=== PATIENT | male | born 1955 | race Caucasian/White ===

== ENCOUNTER 2018-04-14 15:58 | Inpatient (IN) | payer BC ==
[2018-04-14] MEDS ORDERED: SODIUM CHLORIDE 0.9% 1,000 ML IV STA (16:06)
--- NOTE | 2018-04-14 16:14 | ED ---
Arrhythmia/Palpitations HPI - General Chief Complaint: Arrhythmia/Palpitations Stated Complaint: SOB AFIB Time Seen by Provider: 04/14/18 16:05 Source: patient, RN notes reviewed, old records reviewed Mode of arrival: ambulatory Limitations: no limitations - History of Present Illness MD Complaint: rapid heart beat, "heart racing", irregular heart beat, atrial fibrillation -: hour(s) Context: occurred during rest Arrhythmia History: atrial fibrillation Associated Symptoms: shortness of breath - Related Data Home Medications Medication Instructions Recorded Confirmed Omeprazole [PriLOSEC] 20 mg PO DAILY 01/10/14 04/14/18 Simvastatin [Zocor] 10 mg PO HS 01/10/14 04/14/18 Albuterol Sulfate [Proair Hfa] 2 puff INHALATION RT-Q6H PRN 10/11/15 04/14/18 Apixaban [Eliquis] 5 mg PO BID 10/11/15 04/14/18 Fluticasone/Salmeterol [Advair 1 puff INHALATION RT-BID 10/11/15 04/14/18 500-50 Diskus] Ipratropium/Albuterol Sulfate 1 puff INHALATION RT-QID 10/11/15 04/14/18 [Combivent Respimat Inhaler] Lisinopril [Zestril] 2.5 mg PO DAILY 10/11/15 04/14/18 Propafenone [Rythmol] 150 mg PO DAILY PRN 10/11/15 04/14/18 metFORMIN HCL 1,000 mg PO BID 10/13/15 04/14/18 Carvedilol [Coreg] 25 mg PO BID 04/14/18 04/14/18 Cholecalciferol [Vitamin D3] 5,000 unit PO DAILY 04/14/18 04/14/18 Indomethacin [Indocin] 25 mg PO TID 04/14/18 04/14/18 Ipratropium-Albuterol Nebulize 3 ml INHALATION RT-QID 04/14/18 04/14/18 [Duoneb 0.5 mg-3 mg/3 ml Soln] glipiZIDE [Glucotrol] 5 mg PO AC-BRKFST 04/14/18 04/14/18 traMADol HCL [Ultram] 50 mg PO BID PRN 04/14/18 04/14/18 Allergies Allergy/AdvReac Type Severity Reaction Status Date / Time Penicillins Allergy Severe Anaphylaxis Verified 04/14/18 16:42 aspirin AdvReac Nausea Verified 04/14/18 16:42 metoprolol succinate AdvReac increased Verified 04/14/18 16:42 [From Toprol XL] BP, palpitations EKG adhesive patch Allergy Rash/Hives Uncoded 10/11/15 11:15 Review of Systems ROS Statement: Those systems with pertinent positive or pertinent negative responses have been documented in the HPI. ROS Other: All systems not noted in ROS Statement are negative. Past Medical History Past Medical History: Atrial Fibrillation, COPD, Diabetes Mellitus, GERD/Reflux , Hyperlipidemia, Hypertension, Sleep Apnea/CPAP/BIPAP Additional Past Medical History / Comment(s): hx migraines, History of Any Multi-Drug Resistant Organisms: None Reported Past Surgical History: Heart Catheterization, Orthopedic Surgery, Tonsillectomy Additional Past Surgical History / Comment(s): left knee athroscopy, nasal surgery, cyst removed from left hand, hemorrhoidectomy, WYATT, cardioversion x 2, Past Anesthesia/Blood Transfusion Reactions: Motion Sickness Past Psychological History: No Psychological Hx Reported Smoking Status: Former smoker - Past Family History Father Family Medical History: Cancer General Exam Limitations: no limitations General appearance: alert, anxious, in distress Head exam: Present: atraumatic, normocephalic, normal inspection Eye exam: Present: normal appearance, PERRL, EOMI. Absent: scleral icterus, conjunctival injection, periorbital swelling ENT exam: Present: normal exam, mucous membranes moist Neck exam: Present: normal inspection. Absent: tenderness, meningismus, lymphadenopathy Respiratory exam: Present: normal lung sounds bilaterally, wheezes. Absent: respiratory distress, rales, rhonchi, stridor Cardiovascular Exam: Present: tachycardia, irregular rhythm, normal heart sounds. Absent: systolic murmur, diastolic murmur, rubs, gallop, clicks GI/Abdominal exam: Present: soft, normal bowel sounds. Absent: distended, tenderness, guarding, rebound, rigid Extremities exam: Present: normal inspection, full ROM, normal capillary refill. Absent: tenderness, pedal edema, joint swelling, calf tenderness Back exam: Present: normal inspection Neurological exam: Present: alert, oriented X3, CN II-XII intact Psychiatric exam: Present: normal affect, normal mood Skin exam: Present: warm, dry, intact, normal color. Absent: rash Course Vital Signs 04/14/18 04/14/18 04/14/18 16:00 16:24 16:28 Temperature 98.2 F Pulse Rate 99 176 H Pulse Rate [ 188 H Grain Scooper ] Respiratory 24 22 Rate Blood Pressure 156/102 117/83 O2 Sat by Pulse 96 96 Oximetry 04/14/18 17:00 Temperature Pulse Rate 172 H Pulse Rate [ Grain Scooper ] Respiratory 22 Rate Blood Pressure O2 Sat by Pulse 96 Oximetry - Reevaluation(s) Reevaluation #1: 04/14/18 18:32 Medical record is Reevaluation #2: 04/14/18 18:32 [id number] improvement heart rate. Patient still tachycardic EKG Findings - EKG Comments: EKG Findings:: EKG shows A. fib with RVR rate 191, QRS 76, QTc 428 Medical Decision Making - Medical Decision Making 62 male to be admitted with A. fib with RVR. Patient also has underlying COPD. Patient will be admitted for cardiac observation, further rate control - Lab Data Result diagrams: 04/14/18 16:21 04/14/18 16:21 Lab Results 04/14/18 04/14/18 04/14/18 Range/Units 16:21 16:21 16:21 WBC 12.0 H (3.8-10.6) k/uL RBC 4.74 (4.30-5.90) m/uL Hgb 14.4 (13.0-17.5) gm/dL Hct 44.7 (39.0-53.0) % MCV 94.2 (80.0-100.0) fL MCH 30.4 (25.0-35.0) pg MCHC 32.3 (31.0-37.0) g/dL RDW 15.6 H (11.5-15.5) % Plt Count 297 (150-450) k/uL Neutrophils % 82 % Lymphocytes % 12 % Monocytes % 4 % Eosinophils % 1 % Basophils % 1 % Neutrophils # 9.9 H (1.3-7.7) k/uL Lymphocytes # 1.4 (1.0-4.8) k/uL Monocytes # 0.5 (0-1.0) k/uL Eosinophils # 0.1 (0-0.7) k/uL Basophils # 0.1 (0-0.2) k/uL Sodium 141 (137-145) mmol/L Potassium 4.7 (3.5-5.1) mmol/L Chloride 103 (98-107) mmol/L Carbon Dioxide 29 (22-30) mmol/L Anion Gap 9 mmol/L BUN 22 H (9-20) mg/dL Creatinine 0.78 (0.66-1.25) mg/dL Est GFR (CKD-EPI)AfAm >90 (>60 ml/min/1.73 sqM) Est GFR (CKD-EPI)NonAf >90 (>60 ml/min/1.73 sqM) Glucose 155 H (74-99) mg/dL Calcium 9.4 (8.4-10.2) mg/dL Magnesium 1.8 (1.6-2.3) mg/dL Total Bilirubin 0.5 (0.2-1.3) mg/dL AST 18 (17-59) U/L ALT 58 (21-72) U/L Alkaline Phosphatase 66 (38-126) U/L Troponin I <0.012 (0.000-0.034) ng/mL Total Protein 6.2 L (6.3-8.2) g/dL Albumin 3.8 (3.5-5.0) g/dL TSH 2.150 (0.465-4.680) mIU/L Critical Care Time Critical Care Time: Yes Total Critical Care Time: 31 Disposition Clinical Impression: Atrial fibrillation with RVR, COPD (chronic obstructive pulmonary disease) Disposition: ADMITTED IP TO THIS HOSP Condition: Fair Is patient prescribed a controlled substance at d/c from ED?: No Referrals: None,Stated [REFERRING] - 1-2 days
[2018-04-14] MEDS ORDERED: DILTIAZEM DRIP BOLUS FROM BAG 1 MG SOLN IV ONE ×3 (16:19→23:28)
[2018-04-14] MEDS ORDERED: DILTIAZEM 125 MG in SODIUM CHLORIDE 0.9% 100 ML IV SCH (16:30)
[2018-04-14 16:52] LABS: ALT 58 U/L (21-72); AST 18 U/L (17-59); Albumin 3.8 g/dL (3.5-5.0); Alkaline Phosphatase 66 U/L (38-126); Anion Gap 9 mmol/L; Blood Urea Nitrogen 22 mg/dL (9-20); Calcium 9.4 mg/dL (8.4-10.2); Carbon Dioxide 29 mmol/L (22-30); Chloride 103 mmol/L (98-107); Glucose 155 mg/dL (74-99); Magnesium 1.8 mg/dL (1.6-2.3); Potassium 4.7 mmol/L (3.5-5.1); Sodium 141 mmol/L (137-145); Total Bilirubin 0.5 mg/dL (0.2-1.3); Total Protein 6.2 g/dL (6.3-8.2)
[2018-04-14 17:02] LABS: Basophils # (A) 0.1 k/uL (0-0.2); Basophils % (A) 1 %; Eosinophils # (A) 0.1 k/uL (0-0.7); Eosinophils % (A) 1 %; HCT 44.7 % (39.0-53.0); HGB 14.4 gm/dL (13.0-17.5); Lymphocytes # (A) 1.4 k/uL (1.0-4.8); Lymphocytes % (A) 12 %; MCH 30.4 pg (25.0-35.0); MCHC 32.3 g/dL (31.0-37.0); MCV 94.2 fL (80.0-100.0); Mean Platelet Volume 6.2; Monocytes # (A) 0.5 k/uL (0-1.0); Monocytes % (A) 4 %; Neutrophils # (A) 9.9 k/uL (1.3-7.7); Neutrophils % (A) 82 %; Platelet Count 297 k/uL (150-450); RBC 4.74 m/uL (4.30-5.90); RDW 15.6 % (11.5-15.5)
[2018-04-14] MEDS ORDERED: NITROGLYCERIN SL TABS 0.4 MG TAB SUBLINGUAL PRN (18:33)
[2018-04-14 20:47] LABS: Glucose,Whole Blood 109 mg/dL (75-99)
[2018-04-14] MEDS ORDERED: traMADol 50 MG TAB PO PRN (23:11)
[2018-04-14] MEDS ORDERED: PROPAFENONE 150 MG TAB PO PRN (23:11)
[2018-04-14] MEDS: APIXABAN 5 MG TAB PO SCH (23:39)
[2018-04-14] MEDS: ATORVASTATIN 10 MG TAB PO SCH (23:39)
[2018-04-14] MEDS: CARVEDILOL 12.5 MG TAB PO SCH (23:39)
[2018-04-14] MEDS: INDOMETHACIN 25 MG CAP PO SCH (23:41)
[2018-04-14] MEDS: SODIUM CHLORIDE 0.9% 1,000 ML IV SCH (23:44)
[2018-04-15] MEDS ORDERED: SYMBICORT 160-4.5 MCG INHALER INHALATION SCH ×2 (00:06→08:00)
[2018-04-15] MEDS: metFORMIN 500 MG TAB PO SCH ×3 (00:41→20:11)
[2018-04-15] MEDS: ALBUTEROL NEBULIZED 2.5 MG/3 ML INHALATION PRN ×2 (00:52→05:31)
[2018-04-15 05:45] LABS: Glucose,Whole Blood 165 mg/dL (75-99)
[2018-04-15] MEDS: SODIUM CHLORIDE 0.9% 1,000 ML IV SCH (05:50)
[2018-04-15] MEDS: PANTOPRAZOLE 40 MG TABLET PO SCH (05:53)
[2018-04-15 06:06] LABS: Cholesterol 112 mg/dL (<200); HDL Cholesterol 48 mg/dL (40-60); LDL Cholesterol,Calculated 28 mg/dL (0-99); Triglycerides 182 mg/dL (<150)
[2018-04-15] MEDS: IPRATROPIUM-ALBUTEROL 3 ML NEB INHALATION SCH ×4 (07:41→20:58)
[2018-04-15] MEDS: SYMBICORT 160-4.5 MCG INHALER INHALATION SCH ×2 (07:46→20:58)
[2018-04-15] MEDS ORDERED: DEXTROSE 5% IN WATER 100 ML with AMIODARONE 150 MG IV ONE ×2 (08:15→18:11)
--- NOTE | 2018-04-15 08:17 | P.CRDCN ---
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 Devi for his lung needs. According to the patient, he had been to see Dr. Hastings on a couple of occasions recently because of difficulty in breathing, it was felt that he may have a COPD exacerbation and he was treated with steroids. In spite of being on the steroids patient continued to be short of breath, and can feel his heart racing fast. He went back to see Dr. Hastings in the office and was found to be in A. fib with RVR. The patient was then directed to come to the emergency room. There was no chest x-ray performed on arrival here. EKG performed on arrival here showed atrial fibrillation with a rapid ventricular response, heart rate 190. Blood pressure 156/102 on arrival, oxygen saturation 96% on room air. White blood cell count 12.0, hemoglobin 14.4 , platelet count 297. Sodium 141, potassium 4.7, BUN 22 and creatinine 0.7. Magnesium 1.8. Troponins are negative 3. TSH level II.1. At the time of my examination, patient is quite tired, and quite short of breath. He does feel his heart racing fast. Apparently his heart rate has been up in the 150-160 range through most of the night. He is on a Cardizem drip at 10 mg per hour currently. Patient's home medications include Ultram, metformin, Glucotrol, Zocor, Rythmol when necessary, Prilosec, Zestril, inhalers, Indocin, Advair, vitamin D, Coreg, Eliquis, and pro-air. According to the patient, he did not realize that he was back in atrial fibrillation, he did not take Rythmol at home. He thinks the symptoms have been going on for 3 or 4 weeks. Past Medical History Past Medical History: Atrial Fibrillation, COPD, Diabetes Mellitus, GERD/Reflux , Hyperlipidemia, Hypertension, Sleep Apnea/CPAP/BIPAP Additional Past Medical History / Comment(s): hx migraines, History of Any Multi-Drug Resistant Organisms: None Reported Past Surgical History: Heart Catheterization, Orthopedic Surgery, Tonsillectomy Additional Past Surgical History / Comment(s): left knee athroscopy, nasal surgery, cyst removed from left hand, hemorrhoidectomy, WYATT, cardioversion x 2, Past Anesthesia/Blood Transfusion Reactions: Motion Sickness Past Psychological History: No Psychological Hx Reported Smoking Status: Former smoker Past Alcohol Use History: None Reported Additional Past Alcohol Use History / Comment(s): quit smoking 25 yrs ago, smoked for 25 yrs, 1 PPD Past Drug Use History: Marijuana Additional Drug Use History / Comment(s): none in past 1 1/2 yrs. - Past Family History Father Family Medical History: Cancer Medications and Allergies Home Medications Medication Instructions Recorded Confirmed Type Omeprazole [PriLOSEC] 20 mg PO DAILY 01/10/14 04/14/18 History Simvastatin [Zocor] 10 mg PO HS 01/10/14 04/14/18 History Albuterol Sulfate [Proair Hfa] 2 puff INHALATION RT-Q6H PRN 10/11/15 04/14/18 History Apixaban [Eliquis] 5 mg PO BID 10/11/15 04/14/18 History Fluticasone/Salmeterol [Advair 1 puff INHALATION RT-BID 10/11/15 04/14/18 History 500-50 Diskus] Ipratropium/Albuterol Sulfate 1 puff INHALATION RT-QID 10/11/15 04/14/18 History [Combivent Respimat Inhaler] Lisinopril [Zestril] 2.5 mg PO DAILY 10/11/15 04/14/18 History Propafenone [Rythmol] 150 mg PO DAILY PRN 10/11/15 04/14/18 History metFORMIN HCL 1,000 mg PO BID 10/13/15 04/14/18 History Carvedilol [Coreg] 25 mg PO BID 04/14/18 04/14/18 History Cholecalciferol [Vitamin D3] 5,000 unit PO DAILY 04/14/18 04/14/18 History Indomethacin [Indocin] 25 mg PO TID 04/14/18 04/14/18 History Ipratropium-Albuterol Nebulize 3 ml INHALATION RT-QID 04/14/18 04/14/18 History [Duoneb 0.5 mg-3 mg/3 ml Soln] glipiZIDE [Glucotrol] 5 mg PO AC-BRKFST 04/14/18 04/14/18 History traMADol HCL [Ultram] 50 mg PO BID PRN 04/14/18 04/14/18 History Allergies Allergy/AdvReac Type Severity Reaction Status Date / Time Penicillins Allergy Severe Anaphylaxis Verified 04/14/18 16:42 aspirin AdvReac Nausea Verified 04/14/18 16:42 metoprolol succinate AdvReac increased Verified 04/14/18 16:42 [From Toprol XL] BP, palpitations EKG adhesive patch Allergy Rash/Hives Uncoded 10/11/15 11:15 Physical Exam Vitals: Vital Signs Temp Pulse Pulse Resp BP BP BP 04/15/18 07:58 88 04/15/18 07:41 92 04/15/18 05:41 114 H 16 04/15/18 05:31 128 H 18 04/15/18 04:00 144 H 18 114/84 04/15/18 01:02 108 H 04/15/18 00:53 98 04/15/18 00:00 150 H 24 126/81 04/14/18 23:50 158 H 144/87 04/14/18 23:35 150 H 18 126/81 04/14/18 22:57 96 F L 155 H 18 123/71 04/14/18 21:50 98.5 F 141 H 20 04/14/18 21:00 151 H 20 118/90 04/14/18 20:00 98.0 F 148 H 20 116/77 04/14/18 17:00 172 H 22 04/14/18 16:28 176 H 22 117/83 04/14/18 16:24 188 H 04/14/18 16:00 98.2 F 99 24 156/102 Pulse Ox 04/15/18 07:58 04/15/18 07:41 04/15/18 05:41 04/15/18 05:31 04/15/18 04:00 95 04/15/18 01:02 04/15/18 00:53 04/15/18 00:00 95 04/14/18 23:50 04/14/18 23:35 95 04/14/18 22:57 96 02/26/19 21:50 97 04/14/18 21:00 98 04/14/18 20:00 96 04/14/18 17:00 96 04/14/18 16:28 96 04/14/18 16:24 04/14/18 16:00 96 Intake and Output 04/14/18 04/15/18 04/15/18 22:59 06:59 14:59 Intake Total 27.167 Balance 27.167 Intake: Intake, IV Titration 27.167 Amount Diltiazem 125 mg In 27.167 Sodium Chloride 0.9% 100 ml @ 5 MG/HR 5 mls/hr IV .Q24H [facility] Rx#:[id number] Other: Voiding Method Toilet # Voids 1 Weight 153.314 kg 154 kg PHYSICAL EXAMINATION: GENERAL: 62-year-old gentleman in no acute distress at time of my examination HEENT: Head is atraumatic, normocephalic. Pupils equal, round. Sclera anicteric. Conjunctiva are clear. Mucous membranes of the mouth are moist. Neck is supple. There is no elevated jugular venous pressure. HEART EXAMINATION: Heart S1 and S2 irregularly irregular CHEST EXAMINATION: Lungs are clear with diminished air entry to bilateral bases. ABDOMEN: Soft, obese, nontender. Bowel sounds are heard. No organomegaly noted. EXTREMITIES: 2+ peripheral pulses with trace evidence of peripheral edema and no calf tenderness noted. NEUROLOGIC patient is awake, alert and oriented 3 . . Results 04/14/18 16:21 04/14/18 16:21 Cardiac Enzymes 04/14/18 04/14/18 04/14/18 Range/Units 16:21 16:21 22:39 AST 18 (17-59) U/L Troponin I <0.012 <0.012 (0.000-0.034) ng/mL 04/15/18 Range/Units 05:27 AST (17-59) U/L Troponin I <0.012 (0.000-0.034) ng/mL Lipids 04/15/18 Range/Units 05:27 Triglycerides 182 H (<150) mg/dL Cholesterol 112 (<200) mg/dL HDL Cholesterol 48 (40-60) mg/dL CBC 04/14/18 Range/Units 16:21 WBC 12.0 H (3.8-10.6) k/uL RBC 4.74 (4.30-5.90) m/uL Hgb 14.4 (13.0-17.5) gm/dL Hct 44.7 (39.0-53.0) % Plt Count 297 (150-450) k/uL Comprehensive Metabolic Panel 04/14/18 Range/Units 16:21 Sodium 141 (137-145) mmol/L Potassium 4.7 (3.5-5.1) mmol/L Chloride 103 (98-107) mmol/L Carbon Dioxide 29 (22-30) mmol/L BUN 22 H (9-20) mg/dL Creatinine 0.78 (0.66-1.25) mg/dL Glucose 155 H (74-99) mg/dL Calcium 9.4 (8.4-10.2) mg/dL AST 18 (17-59) U/L ALT 58 (21-72) U/L Alkaline Phosphatase 66 (38-126) U/L Total Protein 6.2 L (6.3-8.2) g/dL Albumin 3.8 (3.5-5.0) g/dL Current Medications Generic Name Dose Route Start Last Admin Trade Name Freq PRN Reason Stop Dose Admin Albuterol Sulfate 2.5 mg 04/14/18 23:11 04/15/18 05:31 Ventolin Nebulized INHALATION 2.5 mg RT-Q6H PRN Administration Shortness Of Breath Albuterol/Ipratropium 3 ml 04/15/18 08:00 04/15/18 07:41 Duoneb 0.5 Mg-3 Mg/3 Ml Soln INHALATION 3 ml RT-QID [facility] Administration Apixaban 5 mg 04/14/18 23:15 04/14/18 23:39 Eliquis PO 5 mg BID [facility] Administration Atorvastatin Calcium 10 mg 04/14/18 23:15 04/14/18 23:39 Lipitor PO 10 mg HS [facility] Administration Budesonide/Formoterol Fumarate 2 puff 04/15/18 08:00 04/15/18 07:46 Symbicort 160-4.5 Mcg Inhaler INHALATION 2 puff RT-BID [facility] Administration Carvedilol 25 mg 04/14/18 23:15 04/14/18 23:39 Coreg PO 25 mg BID [facility] Administration Glipizide 5 mg 04/15/18 07:30 Glucotrol PO AC-BRKFST [facility] Sodium Chloride 1,000 mls @ 100 mls/hr 04/14/18 18:45 04/15/18 05:50 Saline 0.9% IV 100 mls/hr .Q10H [facility] Administration Amiodarone HCl 150 mg/ 103 mls @ 618 mls/hr 04/15/18 08:15 Dextrose/Water IV 04/15/18 08:24 .Q10M ONE Amiodarone HCl 360 mg/ 207.2 mls @ 34.53 mls/hr 04/15/18 08:30 Dextrose/Water IV 04/15/18 14:30 .Q6H1M ONE Protocol 1 MG/MIN Amiodarone HCl 300 mg/ 256 mls @ 25.6 mls/hr 04/15/18 14:30 Dextrose/Water IV 04/16/18 08:03 .Q10H [facility] Protocol 0.5 MG/MIN Indomethacin 25 mg 04/14/18 23:15 04/14/18 23:41 Indocin PO 25 mg TID [facility] Administration Lisinopril 2.5 mg 04/15/18 09:00 Zestril PO DAILY [facility] Metformin HCl 1,000 mg 04/14/18 23:40 04/15/18 00:41 Glucophage PO 1,000 mg BID [facility] Administration Nitroglycerin 0.4 mg 04/14/18 18:33 Nitrostat SUBLINGUAL Q5M PRN Chest Pain Pantoprazole Sodium 40 mg 04/15/18 07:30 04/15/18 05:53 Protonix PO 40 mg DAILY@0730 [facility] Administration Propafenone HCl 150 mg 04/14/18 23:11 Rythmol PO DAILY PRN atrial fib Tramadol HCl 50 mg 04/14/18 23:11 Ultram PO BID PRN Pain Intake and Output 04/14/18 04/15/18 04/15/18 22:59 06:59 14:59 Intake Total 27.167 Balance 27.167 Intake: Intake, IV Titration 27.167 Amount Diltiazem 125 mg In 27.167 Sodium Chloride 0.9% 100 ml @ 5 MG/HR 5 mls/hr IV .Q24H [facility] Rx#:[id number] Other: Voiding Method Toilet # Voids 1 Weight 153.314 kg 154 kg 04/14/18 16:21 04/14/18 16:21 EKG Interpretations (text) EKG shows atrial fibrillation with a rapid ventricular response Assessment and Plan Plan: Assessment and plan #1 atrial fibrillation with rapid ventricular response #2 history of paroxysmal atrial fibrillation on Eliquis for anticoagulation #3 COPD with possible exacerbation #4 hypertension #5 hyperlipidemia #6 diabetes #7 prior smoking history #8 sleep apnea Plan We will obtain a stat chest x-ray as well as BNP level. Start the patient on IV amiodarone. We will also obtain an echocardiogram with Doppler study. Continue the patient on Eliquis 5 mg one tablet by mouth twice a day. Further recommendations to follow. DNP note has been reviewed, I agree with a documented findings and plan of care. Patient was seen and examined.
[2018-04-15] MEDS: glipiZIDE 5 MG TAB PO SCH (08:19)
[2018-04-15] MEDS: LISINOPRIL 2.5 MG TAB PO SCH (08:19)
[2018-04-15] MEDS: CARVEDILOL 12.5 MG TAB PO SCH ×2 (08:19→20:11)
[2018-04-15] MEDS: APIXABAN 5 MG TAB PO SCH ×2 (08:19→20:11)
[2018-04-15] MEDS: INDOMETHACIN 25 MG CAP PO SCH ×3 (08:19→23:14)
[2018-04-15] MEDS ORDERED: AMIODARONE 360 MG in DEXTROSE 5% IN WATER 200 ML IV ONE ×4 (08:30→18:16)
[2018-04-15] MEDS ORDERED: metFORMIN 500 MG TAB PO SCH (09:00)
--- NOTE | 2018-04-15 10:21 | XR ---
EXAMINATION TYPE: XR chest 2V DATE OF EXAM: 04/15/2018 COMPARISON: 02/24/2018 INDICATION: Short of breath TECHNIQUE: Frontal and lateral views of the chest are obtained. FINDINGS: The heart size is normal. The pulmonary vasculature is normal. The lungs are clear. IMPRESSION: 1. No acute pulmonary process.
[2018-04-15] MEDS ORDERED: PROPAFENONE 150 MG TAB PO STA (10:48)
[2018-04-15 11:30] LABS: Glucose,Whole Blood 190 mg/dL (75-99)
[2018-04-15] MEDS ORDERED: AMIODARONE 300 MG in DEXTROSE 5% IN WATER 250 ML IV SCH ×2 (14:30)
[2018-04-15] MEDS ORDERED: predniSONE 20 MG TAB PO STA (15:15)
--- NOTE | 2018-04-15 15:39 | HP ---
(HISTORY AND PHYSICAL DATE OF ADMISSION: 04/14/2018. DATE OF SERVICE: 04/15/2018 PRESENTING COMPLAINT: Heart racing. HISTORY OF PRESENTING COMPLAINT: A very pleasant 62-year-old patient who follows with Dr. Lelia Rivas. Chronic stable medical condition includes COPD, diabetes, GERD, hypertension, hyperlipidemia. Patient had been getting short of breath with little exertion, had gone to see Dr. Hastings in the office. Today he was discovered to have a heart rate well above the 150s. Admitted for the same. Initially put on IV Cardizem. Patient does take chronically Eliquis. Earlier this morning, patient was started on IV amiodarone drip. at the bedside. No cough. No wheezing. No fever. No chills. No chest pain, just tired and run down. REVIEW OF SYSTEMS: CONSTITUTIONAL: Tired. HEENT None. RESPIRATORY: As above. CARDIOVASCULAR: As above. GASTROINTESTINAL: None. GENITOURINARY: None. MUSCULOSKELETAL: None. DERMATOLOGICAL: None. HEMATOLOGICAL: None. LYMPHATIC: None. PSYCHIATRY: None. NEUROLOGICAL: None. PAST MEDICAL HISTORY: Paroxysmal atrial fibrillation, COPD, diabetes, GERD, hypertension, hyperlipidemia, obstructive sleep apnea. PAST SURGICAL HISTORY: Cardiac catheterization, tonsillectomy, left knee arthroscopy, nasal surgery, cyst removed from left hand, hemorrhoidectomy, WYATT, cardioversion x2. SOCIAL HISTORY: Smoked a pack a day for 25 years. stopped 25 years ago. 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 . No alcohol. FAMILY HISTORY: Cancer. HOME MEDICATIONS: 1. Ultram 50 mg p.o. b.i.d. p.r.n. 2. Metformin 1000 mg p.o. b.i.d. 3. Glucotrol 5 mg p.o. before breakfast. 4. Zocor 10 mg q.h.s. 5. Rythmol 150 mg daily p.r.n. 6. Prilosec 20 mg p.o. daily. 7. Zestril 22.5 p.o. daily. 8. Combivent 1 puff q.i.d. 9. DuoNeb q.i.d. 10.Indocin 25 mg t.i.d. 11.Advair 1 puff b.i.d. 12.Vitamin D3 five thousand units p.o. daily. 13.Coreg 25 mg b.i.d. 14.Eliquis 5 mg b.i.d. 15.ProAir 2 puffs q.6 p.r.n. ALLERGIES: PENICILLIN, ASPIRIN, TOPROL-XL. PHYSICAL EXAMINATION: Vital signs on presentation temperature 98.2, pulse 118, respiration 22, blood pressure 117/83, pulse ox 96% on room air. GENERAL APPEARANCE: Well built, BMI 42.6, sitting up, awake. EYES: Pupils equal, conjunctivae normal. HEENT: External appearance of nose and ears normal, oral cavity normal. NECK: JVD not raised. Mass not palpable. RESPIRATORY: Effort normal, slightly decreased breath sounds. CARDIOVASCULAR: Heart is irregular. No edema. ABDOMEN: Soft, nontender. Liver and spleen not palpable. LYMPHATIC: No lymph node palpable in neck or axillae. PSYCHIATRY: Alert and oriented x3, mood and affect normal. NEUROLOGICAL: Pupils equal. Cranial nerves grossly intact. Power and sensation grossly intact. INVESTIGATIONS: Lab work and radiology reviewed in the clinical context. White count 12, hemoglobin 14.4, potassium 4.7, BUN 22, creatinine 0.78. Troponin less than 0.012 x3. TSH is 2.150. EKG tracing personally reviewed by me shows atrial flutter fibrillation with a rapid ventricular rate up to 190s. Chest x-ray film personally reviewed by me shows some cardiomegaly. Lung dominguez are clear. ASSESSMENT: 1. Atrial flutter-fibrillation with a rapid ventricular rate, persistent symptomatic. 2. Chronic obstructive pulmonary disease in an ex-smoker. 3. Diabetes mellitus type 2 on oral hypoglycemic. 4. Gastroesophageal reflux disease. 5. Hyperlipidemia. 6. Essential hypertension. 7. Obstructive sleep apnea, uses CPAP machine. 8. Morbid obesity, body mass index 43.6. PLAN: Patient's home medications are resumed. Initially was put on a Cardizem drip, is now discontinued. Patient is switched to an IV amiodarone drip. A 2D echocardiogram was ordered. Care was discussed with the patient and . The patient was seen by Cardiology, Dr. Yarelis Martins. MMODL / NEELAMN: [id number] /
--- NOTE | 2018-04-15 16:48 | ECHOF ---
Referral Reason:assess lvf MEASUREMENTS -------- HEIGHT: 182.9 cm WEIGHT: 108.4 kg BP: IVSd: 1.3 cm (0.6 - 1.1) LVIDd: 5.3 cm (3.9 - 5.3) LVPWd: 1.4 cm (0.6 - 1.1) IVSs: 1.5 cm LVIDs: 3.4 cm LVPWs: 2.0 cm Ao Diam: 3.7 cm (2.0 - 3.7) LA Diam: 4.5 cm (2.7 - 3.8) MV E Ari: 0.67 m/s MV DecT: 165 ms MV A Ari: 0.05 m/s MV E/A Ratio: 13.38 FINDINGS -------- Undetermined rhythm. Morbid Obesity There is mild concentric left ventricular hypertrophy. Overall left ventricular systolic function i s low-normal with, an EF between 50 - 55 %. The right ventricle is normal in size. The left atrial size is normal. The right atrial size is normal. 5.0mg OF Lumason UTLIZED: 2 OR MORE WALL SEGMENTS NOT VISUALIZED. The aortic valve was not well visualized. The mitral valve was not well visualized. The tricuspid valve was not well visualized. Unable to estimate RVSP due to inadequate TR jet spect ral doppler profile. The pulmonic valve was not well visualized. The aortic root size is normal. There is no pericardial effusion. CONCLUSIONS -------- 1. Morbid Obesity 2. There is mild concentric left ventricular hypertrophy. 3. Overall left ventricular systolic function is low-normal with, an EF between 50 - 55 %. 4. The right ventricle is normal in size. 5. The left atrial size is normal. 6. The right atrial size is normal. 7. 5.0mg OF Lumason UTLIZED: 2 OR MORE WALL SEGMENTS NOT VISUALIZED. 8. The aortic valve was not well visualized. 9. The mitral valve was not well visualized. 10. The tricuspid valve was not well visualized. 11. Unable to estimate RVSP due to inadequate TR jet spectral doppler profile. 12. The pulmonic valve was not well visualized. 13. The aortic root size is normal. 14. There is no pericardial effusion. PRINCIPAL BIOSTATISTICIAN: Adalgisa Ortega RDCS
[2018-04-15 16:50] LABS: Glucose,Whole Blood 117 mg/dL (75-99)
[2018-04-15] MEDS: ATORVASTATIN 10 MG TAB PO SCH (20:11)
[2018-04-15 20:57] LABS: Glucose,Whole Blood 208 mg/dL (75-99)
[2018-04-16] MEDS: AMIODARONE 300 MG in DEXTROSE 5% IN WATER 250 ML IV SCH ×6 (01:00→23:13)
[2018-04-16 06:31] LABS: Glucose,Whole Blood 136 mg/dL (75-99)
[2018-04-16] MEDS: PANTOPRAZOLE 40 MG TABLET PO SCH (06:31)
[2018-04-16] MEDS: glipiZIDE 5 MG TAB PO SCH (06:31)
[2018-04-16] MEDS: IPRATROPIUM-ALBUTEROL 3 ML NEB INHALATION SCH ×4 (07:33→20:54)
[2018-04-16] MEDS: SYMBICORT 160-4.5 MCG INHALER INHALATION SCH ×2 (07:33→18:59)
[2018-04-16 07:51] LABS: Basophils # (A) 0.1 k/uL (0-0.2); Basophils % (A) 1 %; Eosinophils # (A) 0.1 k/uL (0-0.7); Eosinophils % (A) 1 %; HCT 45.1 % (39.0-53.0); HGB 14.3 gm/dL (13.0-17.5); Hypochromasia Slight; Lymphocytes # (A) 2.4 k/uL (1.0-4.8); Lymphocytes % (A) 20 %; MCHC 31.6 g/dL (31.0-37.0); MCV 94.8 fL (80.0-100.0); Mean Platelet Volume 6.9; Monocytes # (A) 0.6 k/uL (0-1.0); Monocytes % (A) 5 %; Neutrophils # (A) 9.2 k/uL (1.3-7.7); Neutrophils % (A) 74 %; Platelet Count 250 k/uL (150-450); RBC 4.76 m/uL (4.30-5.90); RDW 15.2 % (11.5-15.5); WBC 12.5 k/uL (3.8-10.6)
[2018-04-16 08:10] LABS: Potassium 4.3 mmol/L (3.5-5.1)
[2018-04-16 08:11] LABS: Anion Gap 13 mmol/L; Blood Urea Nitrogen 16 mg/dL (9-20); Calcium 9.4 mg/dL (8.4-10.2); Carbon Dioxide 26 mmol/L (22-30); Chloride 102 mmol/L (98-107); Glucose 118 mg/dL (74-99); Sodium 141 mmol/L (137-145)
[2018-04-16] MEDS: INDOMETHACIN 25 MG CAP PO SCH (08:51)
[2018-04-16] MEDS: CARVEDILOL 12.5 MG TAB PO SCH ×2 (08:51→20:22)
[2018-04-16] MEDS: LISINOPRIL 2.5 MG TAB PO SCH (08:51)
[2018-04-16] MEDS: predniSONE 10 MG TAB PO SCH (08:51)
[2018-04-16] MEDS: APIXABAN 5 MG TAB PO SCH ×2 (08:51→20:23)
[2018-04-16] MEDS: metFORMIN 500 MG TAB PO SCH ×2 (08:52→20:22)
[2018-04-16 11:50] LABS: Glucose,Whole Blood 111 mg/dL (75-99)
--- NOTE | 2018-04-16 14:09 | CDI ---
Documentation Clarification Form Date: 04/16/2018 1:56:34 PM From: Areli Almeida CCS, CCDS Admit Date: 04/14/2018 6:33:00 PM Patient Name: Josemanuel Mccartney Visit Number: [id number] Discharge Date: ATTENTION: The Clinical Documentation Specialists (CDI) and [facility] Coding Staff appreciate your assistance in clarifying documentation. Please respond to the clarification below the line at the bottom and electronically sign. The CDI & [facility] Coding staff will review the response and follow-up if needed. Please note: Queries are made part of the Legal Health Record. If you have any questions, please contact the author of this message via ITS. Dr. Ace Hussein: Atrial Flutter-Fibrillation is documented in the History & Physical with no other specification. Per the cardiology consult: Paroxysmal Atrial Fibrillation is documented. History/Risk factors: Atrial fibrillation, COPD, DM II, GERD, Hypertension, Hyperlipidemia, TRISHA. Clinical Indicators: Presented with palpitations, chronically on Eliquis. HR: 99 176 88 - 120 EKG/telemetry: R 191 Atrial fibrillation w/RVR Treatment: IV fluid bolus, IV Cardizem drip, Nitro sl, IV fluid 100, Albuterol INH, IV Amiodarone, O2 In your professional opinion, in order to capture the severity of condition; can you please clarify the type of Atrial Flutter if known? Typical/Type I Atypical/Type II Other, please specify Unable to determine (Last Revision: May 2017) unable to determine MTDD
[2018-04-16] MEDS: DIGOXIN 250 MCG/ML 2 ML AMP IVP SCH ×2 (14:31→20:23)
--- NOTE | 2018-04-16 16:03 | P.PN ---
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 Devi for his lung needs. According to the patient, he had been to see Dr. Hastings on a couple of occasions recently because of difficulty in breathing, it was felt that he may have a COPD exacerbation and he was treated with steroids. In spite of being on the steroids patient continued to be short of breath, and can feel his heart racing fast. He went back to see Dr. Hastings in the office and was found to be in A. fib with RVR. The patient was then directed to come to the emergency room. There was no chest x-ray performed on arrival here. EKG performed on arrival here showed atrial fibrillation with a rapid ventricular response, heart rate 190. Blood pressure 156/102 on arrival, oxygen saturation 96% on room air. White blood cell count 12.0, hemoglobin 14.4 , platelet count 297. Sodium 141, potassium 4.7, BUN 22 and creatinine 0.7. Magnesium 1.8. Troponins are negative 3. TSH level II.1. At the time of my examination, patient is quite tired, and quite short of breath. He does feel his heart racing fast. Apparently his heart rate has been up in the 150-160 range through most of the night. He is on a Cardizem drip at 10 mg per hour currently. Patient's home medications include Ultram, metformin, Glucotrol, Zocor, Rythmol when necessary, Prilosec, Zestril, inhalers, Indocin, Advair, vitamin D, Coreg, Eliquis, and pro-air. According to the patient, he did not realize that he was back in atrial fibrillation, he did not take Rythmol at home. He thinks the symptoms have been going on for 3 or 4 weeks. 04/16/2018 Patient continued to be in A. fib with RVR this morning in spite of being on amiodarone. Blood pressure in the 90 systolic range. We will add some IV Lanoxin to his medication regime 3 doses. Continue IV amiodarone for 24 hours. Echocardiogram with Doppler study showed an ejection fraction of 50-55%. Objective - Vital Signs Vital signs: Vital Signs Temp 98.1 F 04/16/18 12:00 Pulse 116 H 04/16/18 15:36 Resp 20 04/16/18 12:00 BP 94/74 04/16/18 12:00 Pulse Ox 95 04/16/18 12:00 Intake & Output 04/15/18 04/16/18 04/16/18 18:59 06:59 18:59 Intake Total 420 1210 Balance 420 1210 Weight 154.5 kg Intake: IV 110 normal saline 110 Intake, IV Titration 200 Amount Amiodarone 360 mg In 200 Dextrose 5% in Water 200 ml @ 1 MG/MIN 33.33 mls/ hr IV .Q6H1M [facility] Rx#: [id number] Oral 420 900 Other: Voiding Method Toilet Toilet # Voids 3 4 - Exam PHYSICAL EXAMINATION: GENERAL: 62-year-old gentleman in no acute distress at time of my examination HEENT: Head is atraumatic, normocephalic. Pupils equal, round. Sclera anicteric. Conjunctiva are clear. Mucous membranes of the mouth are moist. Neck is supple. There is no elevated jugular venous pressure. HEART EXAMINATION: Heart S1 and S2 irregularly irregular CHEST EXAMINATION: Lungs are clear with diminished air entry to bilateral bases. ABDOMEN: Soft, obese, nontender. Bowel sounds are heard. No organomegaly noted. EXTREMITIES: 2+ peripheral pulses with trace evidence of peripheral edema and no calf tenderness noted. NEUROLOGIC patient is awake, alert and oriented 3 . - Labs CBC & Chem 7: 04/16/18 06:33 04/16/18 06:33 Labs: Abnormal Lab Results - Last 24 Hours (Table) 04/15/18 04/15/18 04/16/18 Range/Units 16:48 20:56 06:30 WBC (3.8-10.6) k/uL Neutrophils # (1.3-7.7) k/uL Glucose (74-99) mg/dL POC Glucose (mg/dL) 117 H 208 H 136 H (75-99) mg/dL 04/16/18 04/16/18 04/16/18 Range/Units 06:33 06:33 11:29 WBC 12.5 H (3.8-10.6) k/uL Neutrophils # 9.2 H (1.3-7.7) k/uL Glucose 118 H (74-99) mg/dL POC Glucose (mg/dL) 111 H (75-99) mg/dL Assessment and Plan Plan: Assessment and plan #1 atrial fibrillation with rapid ventricular response #2 history of paroxysmal atrial fibrillation on Eliquis for anticoagulation #3 COPD with possible exacerbation #4 hypertension #5 hyperlipidemia #6 diabetes #7 prior smoking history #8 sleep apnea Plan We will give the patient IV Lanoxin 3 doses, continue amiodarone drip for 24 hours. DNP note has been reviewed, I agree with a documented findings and plan of care. Patient was seen and examined.
[2018-04-16 16:50] LABS: Glucose,Whole Blood 147 mg/dL (75-99)
[2018-04-16] MEDS ORDERED: AMIODARONE 200 MG TAB PO SCH (18:00)
[2018-04-16] MEDS: ATORVASTATIN 10 MG TAB PO SCH (20:23)
[2018-04-16 21:12] LABS: Glucose,Whole Blood 127 mg/dL (75-99)
[2018-04-17] MEDS: DIGOXIN 250 MCG/ML 2 ML AMP IVP SCH (02:14)
[2018-04-17] MEDS: ALBUTEROL NEBULIZED 2.5 MG/3 ML INHALATION PRN (04:47)
[2018-04-17 06:26] LABS: Glucose,Whole Blood 185 mg/dL (75-99)
[2018-04-17] MEDS: PANTOPRAZOLE 40 MG TABLET PO SCH (06:37)
[2018-04-17] MEDS: glipiZIDE 5 MG TAB PO SCH (06:37)
[2018-04-17 07:34] LABS: Anisocytosis Slight; Basophils % (A) 0 %; Eosinophils # (A) 0.1 k/uL (0-0.7); Eosinophils % (A) 1 %; HCT 39.2 % (39.0-53.0); Lymphocytes # (A) 1.5 k/uL (1.0-4.8); Lymphocytes % (A) 16 %; MCH 31.6 pg (25.0-35.0); MCHC 33.3 g/dL (31.0-37.0); Monocytes # (A) 0.5 k/uL (0-1.0); Monocytes % (A) 5 %; Neutrophils # (A) 7.6 k/uL (1.3-7.7); Neutrophils % (A) 78 %; Platelet Count 204 k/uL (150-450); RBC 4.13 m/uL (4.30-5.90); RDW 16.4 % (11.5-15.5); WBC 9.8 k/uL (3.8-10.6)
[2018-04-17 07:47] LABS: Anion Gap 9 mmol/L; Blood Urea Nitrogen 14 mg/dL (9-20); Carbon Dioxide 29 mmol/L (22-30); Chloride 103 mmol/L (98-107); Glucose 105 mg/dL (74-99); Sodium 141 mmol/L (137-145)
[2018-04-17] MEDS: AMIODARONE 300 MG in DEXTROSE 5% IN WATER 250 ML IV SCH ×2 (08:33)
[2018-04-17] MEDS: predniSONE 10 MG TAB PO SCH (08:34)
[2018-04-17] MEDS: metFORMIN 500 MG TAB PO SCH ×2 (08:34→20:16)
[2018-04-17] MEDS: CARVEDILOL 12.5 MG TAB PO SCH (08:34)
[2018-04-17] MEDS: APIXABAN 5 MG TAB PO SCH ×2 (08:34→20:16)
[2018-04-17] MEDS: LISINOPRIL 2.5 MG TAB PO SCH (08:34)
[2018-04-17] MEDS: IPRATROPIUM-ALBUTEROL 3 ML NEB INHALATION SCH ×4 (10:09→20:03)
[2018-04-17] MEDS: SYMBICORT 160-4.5 MCG INHALER INHALATION SCH ×2 (10:09→20:03)
--- NOTE | 2018-04-17 10:47 | PN ---
PROGRESS NOTE DATE OF SERVICE: 04/16/2018 PRESENTING COMPLAINT: Heart racing. INTERVAL HISTORY: This patient is seen by me yesterday. Admitted with AFib with rapid ventricular rate. Heart rate remains uncontrolled. Patient was switched over to IV amiodarone. Patient does become dizzy, chest pressure when his heart rate goes up. Lying in bed. REVIEW OF SYSTEMS: Done for constitutional, cardiovascular, GI, pulmonary; relevant findings as above. CURRENT MEDICATIONS: Reviewed that include IV Amiodarone, IV Cardizem has been discontinued. Patient also on Coreg, also being started on digoxin. PHYSICAL EXAMINATION: Temperature 98.3, pulse 70 to 130, respiration 18, blood pressure 127/85, pulse ox 98% on room air. GENERAL APPEARANCE: Lying in bed, tired appearing. EYES: Pupils equal, conjunctivae are normal. NECK: JVD not . RESPIRATORY: Effort normal. LUNGS: Slight decreased breath sounds. CARDIOVASCULAR: Heart sounds irregular, no edema. ABDOMEN: Soft nontender, liver and spleen not palpable. PSYCHIATRY: Alert and oriented x3, mood and affect normal. INVESTIGATIONS: White count 12.5, hemoglobin 14.3. potassium 4.3, proBNP 567. ASSESSMENT: 1. Atrial flutter/fibrillation persistent with rapid ventricular rate, remains uncontrolled, now started on IV amiodarone, IV Cardizem drip has been discontinued. 2. Chronic obstructive pulmonary disease in an ex-smoker. 3. Diabetes mellitus type 2 on oral hypoglycemic. 4. Gastroesophageal reflux disease. 5. Hyperlipidemia. 6. Essential hypertension. 7. Obstructive sleep apnea, uses CPAP machine. 8. Morbid obesity, body mass index 43.6. PLAN: Continue current medication and treatment plan. Patient is on Coreg. Cardizem drip has been discontinued, has been on IV amiodarone. Care was discussed with the patient. Also being given IV digoxin. Will follow. MMODL / IJN: [id number] /
[2018-04-17 11:55] LABS: Glucose,Whole Blood 88 mg/dL (75-99)
[2018-04-17] MEDS: AMIODARONE 200 MG TAB PO SCH ×2 (16:20→20:16)
[2018-04-17 16:52] LABS: Glucose,Whole Blood 129 mg/dL (75-99)
--- NOTE | 2018-04-17 18:16 | PN ---
PROGRESS NOTE DATE OF SERVICE: 04/17/2018 PRESENTING COMPLAINT: Heart racing. INTERVAL HISTORY: This patient presented with atrial fibrillation with rapid ventricular rate. Remains on IV amiodarone. Heart rate is still uncontrolled, running in the 130s. Does get easily tired, short of breath with any activity in bed. REVIEW OF SYSTEMS: Done for constitutional, cardiovascular, GI, pulmonary; relevant findings as above. CURRENT MEDICATIONS: Reviewed. They include IV amiodarone, Eliquis, nadolol 20 mg b.i.d. started today. PHYSICAL EXAMINATION: VITAL SIGNS: Temperature 97.8, pulse 130, respiration 20, blood pressure 114/70, pulse ox 95% on room air. GENERAL APPEARANCE: Lying in bed, tired-appearing. EYES: Pupils equal. Conjunctivae normal. NECK: JVD not raised. Mass not palpable. RESPIRATORY: Effort normal. LUNGS: Decreased breath sounds. CARDIOVASCULAR: Heart sounds irregular. No edema. ABDOMEN: Soft, nontender. Liver and spleen not palpable. PSYCHIATRY: Alert and oriented x3. Mood and affect normal. INVESTIGATIONS: White count 9.8, hemoglobin 13, potassium 4.0. BUN and creatinine are normal. ASSESSMENT: 1. Atrial flutter/fibrillation, persistent, with rapid ventricular rate. Remains uncontrolled. Patient remains on IV amiodarone. 2. Chronic obstructive pulmonary disease in an ex-smoker. 3. Diabetes mellitus, type 2, on oral hypoglycemic. 4. Gastroesophageal reflux disease. 5. Hyperlipidemia. 6. Essential hypertension. 7. Obstructive sleep apnea. Uses CPAP machine. 8. Morbid obesity with body mass index of 43.6. PLAN: Patient was started on nadolol today. Off Coreg. Heart rate still remains uncontrolled. Care was discussed with the patient. Patient is not on digoxin. MMODL / IJN: [id number] /
[2018-04-17] MEDS: ATORVASTATIN 10 MG TAB PO SCH (20:16)
[2018-04-17] MEDS: NADOLOL 20 MG TAB PO SCH (20:17)
[2018-04-17 20:56] LABS: Glucose,Whole Blood 102 mg/dL (75-99)
--- NOTE | 2018-04-17 21:47 | PN ---
PROGRESS NOTE This patient is admitted with acute exacerbation of COPD and persistent atrial fibrillation. This patient has been tried on amiodarone drip and oral Coreg. The patient still remains to be tachycardic with a rate of 90-120 per minute. The patient's blood pressure is 114/70 mmHg. Heart S1 and S2 heard. Respirations are not labored. Bilateral wheezing is noted. In view of the persistent RVR, we will try the patient on nadolol 20 mg b.i.d. and we will also give him Lanoxin 0.125 mg daily to control the heart rate. MMODL / IJN: [id number] /
[2018-04-18] MEDS: ALBUTEROL NEBULIZED 2.5 MG/3 ML INHALATION PRN (05:20)
[2018-04-18 05:55] LABS: Glucose,Whole Blood 113 mg/dL (75-99)
[2018-04-18] MEDS: PANTOPRAZOLE 40 MG TABLET PO SCH (06:01)
[2018-04-18] MEDS: glipiZIDE 5 MG TAB PO SCH (06:01)
[2018-04-18] MEDS: IPRATROPIUM-ALBUTEROL 3 ML NEB INHALATION SCH ×4 (07:50→20:30)
[2018-04-18] MEDS: SYMBICORT 160-4.5 MCG INHALER INHALATION SCH ×2 (07:50→20:30)
[2018-04-18] MEDS: APIXABAN 5 MG TAB PO SCH ×2 (09:11→20:33)
[2018-04-18] MEDS: predniSONE 10 MG TAB PO SCH (09:11)
[2018-04-18] MEDS: metFORMIN 500 MG TAB PO SCH ×2 (09:11→20:33)
[2018-04-18] MEDS: LISINOPRIL 2.5 MG TAB PO SCH (09:11)
[2018-04-18] MEDS: NADOLOL 20 MG TAB PO SCH ×2 (09:11→20:33)
[2018-04-18] MEDS: AMIODARONE 200 MG TAB PO SCH ×3 (09:11→20:33)
[2018-04-18 10:55] LABS: Glucose,Whole Blood 85 mg/dL (75-99)
--- NOTE | 2018-04-18 11:44 | P.PN ---
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 Devi for his lung needs. According to the patient, he had been to see Dr. Hastings on a couple of occasions recently because of difficulty in breathing, it was felt that he may have a COPD exacerbation and he was treated with steroids. In spite of being on the steroids patient continued to be short of breath, and can feel his heart racing fast. He went back to see Dr. Hastings in the office and was found to be in A. fib with RVR. The patient was then directed to come to the emergency room. There was no chest x-ray performed on arrival here. EKG performed on arrival here showed atrial fibrillation with a rapid ventricular response, heart rate 190. Blood pressure 156/102 on arrival, oxygen saturation 96% on room air. White blood cell count 12.0, hemoglobin 14.4 , platelet count 297. Sodium 141, potassium 4.7, BUN 22 and creatinine 0.7. Magnesium 1.8. Troponins are negative 3. TSH level II.1. At the time of my examination, patient is quite tired, and quite short of breath. He does feel his heart racing fast. Apparently his heart rate has been up in the 150-160 range through most of the night. He is on a Cardizem drip at 10 mg per hour currently. Patient's home medications include Ultram, metformin, Glucotrol, Zocor, Rythmol when necessary, Prilosec, Zestril, inhalers, Indocin, Advair, vitamin D, Coreg, Eliquis, and pro-air. According to the patient, he did not realize that he was back in atrial fibrillation, he did not take Rythmol at home. He thinks the symptoms have been going on for 3 or 4 weeks. 04/16/2018 Patient continued to be in A. fib with RVR this morning in spite of being on amiodarone. Blood pressure in the 90 systolic range. We will add some IV Lanoxin to his medication regime 3 doses. Continue IV amiodarone for 24 hours. Echocardiogram with Doppler study showed an ejection fraction of 50-55%. 04/18/2018 Patient seen and examined this morning, heart rate today is under better control. In the 90s at the time of my examination, blood pressure 136/70, 95% on room air. Patient states he still feels like he has trouble breathing. Does not feel back to his normal yet. Objective - Vital Signs Vital signs: Vital Signs Temp 97.7 F 04/18/18 08:00 Pulse 100 04/18/18 08:08 Resp 20 04/18/18 08:00 BP 137/79 04/18/18 08:00 Pulse Ox 95 04/18/18 08:00 Intake & Output 04/17/18 04/18/18 04/18/18 18:59 06:59 18:59 Intake Total 953.333 230 Balance 953.333 230 Weight 152.1 kg Intake: Intake, IV Titration 233.333 Amount Amiodarone 300 mg In 233.333 Dextrose 5% in Water 250 ml @ 0.5 MG/MIN 25 mls/hr IV .Q10H [facility] Rx#: [id number] Oral 720 230 Other: Voiding Method Toilet Toilet Toilet # Voids 2 1 2 - Exam PHYSICAL EXAMINATION: GENERAL: 62-year-old gentleman in no acute distress at time of my examination HEENT: Head is atraumatic, normocephalic. Pupils equal, round. Sclera anicteric. Conjunctiva are clear. Mucous membranes of the mouth are moist. Neck is supple. There is no elevated jugular venous pressure. HEART EXAMINATION: Heart S1 and S2 irregularly irregular CHEST EXAMINATION: Lungs are clear with diminished air entry to bilateral bases. ABDOMEN: Soft, obese, nontender. Bowel sounds are heard. No organomegaly noted. EXTREMITIES: 2+ peripheral pulses with trace evidence of peripheral edema and no calf tenderness noted. NEUROLOGIC patient is awake, alert and oriented 3 . - Labs CBC & Chem 7: 04/17/18 06:28 04/17/18 06:28 Labs: Abnormal Lab Results - Last 24 Hours (Table) 04/17/18 04/17/18 04/18/18 Range/Units 16:50 20:55 05:53 POC Glucose (mg/dL) 129 H 102 H 113 H (75-99) mg/dL Assessment and Plan Plan: Assessment and plan #1 atrial fibrillation with rapid ventricular response #2 history of paroxysmal atrial fibrillation on Eliquis for anticoagulation #3 COPD with possible exacerbation #4 hypertension #5 hyperlipidemia #6 diabetes #7 prior smoking history #8 sleep apnea Plan From cardiology's perspective, we'll recommend to continue the patient on his current medications. DNP note has been reviewed, I agree with a documented findings and plan of care. Patient was seen and examined.
[2018-04-18 11:55] LABS: Glucose,Whole Blood 141 mg/dL (75-99)
[2018-04-18 17:49] LABS: Glucose,Whole Blood 112 mg/dL (75-99)
[2018-04-18] MEDS ORDERED: LOPERAMIDE 2 MG CAP PO PRN (19:25)
[2018-04-18 20:29] LABS: Glucose,Whole Blood 124 mg/dL (75-99)
[2018-04-18] MEDS: ATORVASTATIN 10 MG TAB PO SCH (20:33)
--- NOTE | 2018-04-18 20:54 | PN ---
PROGRESS NOTE DATE OF SERVICE: April 18, 2018. PRESENTING COMPLAINT: Tired. INTERVAL HISTORY: Patient presented with atrial fibrillation with rapid ventricular rate. Had been on IV amiodarone. Heart rate is more to 90s to teens today. Symptoms are better. Does get tired though. REVIEW OF SYSTEMS: Done for constitutional, cardiovascular, GI, pulmonary; relevant findings above. CURRENT MEDICATIONS: Reviewed that include p.o. amiodarone and Nadolol. PHYSICAL EXAMINATION: VITAL SIGNS: Temperature 97.9. Pulse 110, respiration 16, blood pressure 116/75, pulse ox 94 percent on room air. GENERAL APPEARANCE: Sitting on bed, awake. EYES: Pupils are equal. Conjunctivae normal. NECK: JVD not raised. Mass not palpable. RESPIRATORY: Effort increased. LUNGS: Diminished breath sounds. CARDIOVASCULAR: Heart sounds irregular. No edema. ABDOMEN: Soft, nontender. Liver and spleen not palpable. PSYCHIATRY: Alert and oriented x3. Mood and affect normal. INVESTIGATIONS: Accu-Cheks are noted. ASSESSMENT: 1. Persistent atrial flutter fibrillation with rapid ventricular rate, rate is somewhat better controlled, currently on amiodarone and Nadolol. 2. Chronic obstructive pulmonary disease in an ex-smoker. 3. Diabetes mellitus type 2 on oral hypoglycemics. 4. Gastroesophageal reflux disease. 5. Hyperlipidemia. 6. Essential hypertension. 7. Obstructive sleep apnea uses CPAP machine. 8. Morbid obesity, BMI 43.6. PLAN: Care was discussed with the patient. The patient on Nadolol and oral amiodarone. Appears to be doing better, encouraged to be out of bed. Follow with Cardiology. MMODL / IJN: [id number] /
[2018-04-19] MEDS: ALBUTEROL NEBULIZED 2.5 MG/3 ML INHALATION PRN (03:34)
[2018-04-19 06:22] LABS: Glucose,Whole Blood 94 mg/dL (75-99)
[2018-04-19] MEDS: PANTOPRAZOLE 40 MG TABLET PO SCH (06:32)
[2018-04-19] MEDS: glipiZIDE 5 MG TAB PO SCH (06:32)
[2018-04-19] MEDS: IPRATROPIUM-ALBUTEROL 3 ML NEB INHALATION SCH ×4 (08:54→21:25)
[2018-04-19] MEDS: SYMBICORT 160-4.5 MCG INHALER INHALATION SCH ×2 (08:54→21:32)
[2018-04-19] MEDS: LISINOPRIL 2.5 MG TAB PO SCH (09:12)
[2018-04-19] MEDS: AMIODARONE 200 MG TAB PO SCH ×3 (09:12→22:06)
[2018-04-19] MEDS: NADOLOL 20 MG TAB PO SCH ×2 (09:12→20:06)
[2018-04-19] MEDS: predniSONE 10 MG TAB PO SCH (09:12)
[2018-04-19] MEDS: APIXABAN 5 MG TAB PO SCH ×2 (09:12→20:06)
[2018-04-19] MEDS: metFORMIN 500 MG TAB PO SCH ×2 (09:15→20:07)
[2018-04-19 11:54] LABS: Glucose,Whole Blood 92 mg/dL (75-99)
--- NOTE | 2018-04-19 12:52 | P.PN ---
Subjective this is a pleasant 62-year-old male past medical history significant for COPD, paroxysmal atrial fibrillation, hypertension, diabetes, dyslipidemia and obstructive sleep apnea. He initially presented to the hospital secondary to atrial fibrillation with rapid ventricular response it was discovered while he was at Dr. Hastings's office. He has been initiated on amiodarone. Echocardiogram reveals preserved left ventricular systolic function with ejection fraction 50-55%. He is seen and examined resting comfortably in bed in no acute distress. He denies symptoms of chest discomfort, palpitations or dizziness. He states his breathing is improving day by day but not back to baseline. Blood pressure 140/95 heart rate 97 afebrile and taking oxygen saturation on room air. Currently maintained on amiodarone 200 mg 3 times a day , Eliquis 5 mg twice a day, atorvastatin 10 mg daily, lisinopril 2.5 mg daily and nadolol 20 mg twice a day. GENERAL: Well-appearing, well-nourished and in no acute distress. NECK: Supple without JVD or thyromegaly. LUNGS: Breath sounds clear to auscultation bilaterally. Respiration equal and unlabored. No wheezes, rales or rhonchi. Diminished bilaterally. HEART: Irregular rate and rhythm without murmurs, rubs or gallops. S1 and S2 heard. EXTREMITIES: Normal range of motion, no edema. No clubbing or cyanosis. Peripheral pulses intact. ASSESSMENT Paroxysmal atrial fibrillation with rapid ventricular response on admission, heart rates under much better control COPD Hypertension Dyslipidemia Diabetes mellitus Obstructive sleep apnea Former nicotine dependence PLAN Heart rates are under much better control and he is tolerating PO amidarone. From a cardiac perspective he may be discharged home on amiodarone taper: 200 mg TID for 7 days, then 200 mg BID for 7 days then 200 mg daily thereafter. Follow up in the office in 2 weeks. Plan has been discussed in great detail with the patient. Nurse Practitioner note has been reviewed, I agree with a documented findings and plan of care. Patient was seen and examined. Objective - Vital Signs Vital signs: Vital Signs Temp 97.4 F L 04/19/18 11:27 Pulse 96 04/19/18 12:13 Resp 20 04/19/18 11:27 BP 140/95 04/19/18 11:27 Pulse Ox 95 04/19/18 11:27 Intake & Output 04/18/18 04/19/1804/19/19 18:59 06:59 18:59 Intake Total 460 1000 444 Output Total 1200 Balance 460 1000 -756 Weight 151.9 kg Intake: IV 40 Invasive Line 3 30 normal saline 10 Oral 460 960 444 Output: Urine 1200 Other: Voiding Method Toilet Toilet Toilet # Voids 3 # Bowel Movements 3 - Labs CBC & Chem 7: 04/17/18 06:28 04/17/18 06:28 Labs: Abnormal Lab Results - Last 24 Hours (Table) 04/18/18 04/18/18 Range/Units 17:34 20:28 POC Glucose (mg/dL) 112 H 124 H (75-99) mg/dL
[2018-04-19 16:47] LABS: Glucose,Whole Blood 99 mg/dL (75-99)
--- NOTE | 2018-04-19 19:25 | PN ---
PROGRESS NOTE DATE OF SERVICE: April 19, 2018. INTERVAL HISTORY: Patient presented with atrial fibrillation with rapid ventricular rate, switched to oral medications. With exertion, patient's heart rate goes up to 120s. Earlier Cardiology had cleared the patient to go home. The nurse had called back and Dr. Coyle was covering and he felt to hold the patient back. The patient states that he has been getting easily short-winded and he has been following with Dr. Hastings in the office. He has put on significant amount of weight in the last couple of years. is present at the bedside. REVIEW OF SYSTEMS: Done for constitutional, cardiovascular, GI, pulmonary; relevant findings as above. CURRENT MEDICATIONS: Reviewed that include p.o. amiodarone and Nadolol. PHYSICAL EXAMINATION: VITAL SIGNS: Temperature 98.2, pulse 72, respiration 16, blood pressure 109/70, pulse ox 95% on room air. GENERAL APPEARANCE: Sitting up on a chair, comfortable. EYES: Pupils are equal. Conjunctivae normal. NECK: JVD not raised. Mass not palpable. RESPIRATORY: Effort increased. LUNGS: Diminished breath sounds. CARDIOVASCULAR: Heart sounds irregular. No edema. ABDOMEN: Soft, nontender. Liver and spleen not palpable. PSYCHIATRY: Alert and oriented times three. Mood and affect normal. INVESTIGATIONS: Accu-Cheks are noted. ASSESSMENT: 1. Persistent atrial flutter fibrillation with rapid ventricular rate somewhat now better controlled. 2. Chronic obstructive pulmonary disease in an ex-smoker. 3. Diabetes mellitus type 2 on oral hypoglycemic. 4. Gastroesophageal reflux disease. 5. Hyperlipidemia. 6. Essential hypertension. 7. Obstructive sleep apnea uses CPAP machine. 8. Morbid obesity BMI 43.6. PLAN: Care was discussed at length with the patient and at the bedside. I had a lengthy talk about weight loss measures including both quality and quantity of food and lifestyle changes. Dr. Coyle asked the patient to be held back. We will get the patient to see Pulmonary to see if anything further needs to be added. The patient does follow with Dr. Hastings in the office. Will add some inhaled Pulmicort and might give a short burst of steroids to see how he does. Dietitian will be consulted and so will be pulmonary. Total time spent today was about 40 minutes with over 25 minutes of discussion. MMODL / IJN: [id number] /
[2018-04-19] MEDS: ATORVASTATIN 10 MG TAB PO SCH (20:06)
[2018-04-19] MEDS: predniSONE 20 MG TAB PO SCH (20:07)
[2018-04-19 21:12] LABS: Glucose,Whole Blood 110 mg/dL (75-99)
[2018-04-19] MEDS: BUDESONIDE 1 MG/2 ML NEBU INHALATION SCH (21:25)
[2018-04-20] MEDS: ALBUTEROL NEBULIZED 2.5 MG/3 ML INHALATION PRN (04:05)
[2018-04-20 06:19] LABS: Glucose,Whole Blood 105 mg/dL (75-99)
[2018-04-20] MEDS: PANTOPRAZOLE 40 MG TABLET PO SCH (06:29)
[2018-04-20] MEDS: glipiZIDE 5 MG TAB PO SCH (06:29)
[2018-04-20] MEDS: metFORMIN 500 MG TAB PO SCH ×2 (08:28→20:08)
[2018-04-20] MEDS: AMIODARONE 200 MG TAB PO SCH ×3 (08:28→22:16)
[2018-04-20] MEDS: APIXABAN 5 MG TAB PO SCH ×2 (08:28→22:16)
[2018-04-20] MEDS: predniSONE 20 MG TAB PO SCH (08:28)
[2018-04-20] MEDS: NADOLOL 20 MG TAB PO SCH ×2 (08:28→20:09)
[2018-04-20] MEDS: LISINOPRIL 2.5 MG TAB PO SCH (08:28)
[2018-04-20] MEDS: IPRATROPIUM-ALBUTEROL 3 ML NEB INHALATION SCH ×4 (09:06→19:28)
[2018-04-20] MEDS: BUDESONIDE 1 MG/2 ML NEBU INHALATION SCH ×2 (09:06→19:28)
--- NOTE | 2018-04-20 11:41 | P.CNPUL ---
History of Present Illness Consult date: 04/20/18 Requesting physician: Ace Hussein Reason for consult: dyspnea Chief complaint: Shortness of breath, A. fib RVR History of present illness: This is 62-year-old white male patient with past medical history of paroxysmal atrial fibrillation, advanced COPD, with baseline FEV1 of 30-34% of predicted, obstructive sleep apnea, on CPAP therapy, morbid obesity, hypertension, hyperlipidemia, GERD/reflux. 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 Wild from [facility]. He states he had remained in sinus rhythm since his last cardioversion. Lately has been experiencing increased shortness of breath, he went to see Dr. [facility] pulmonary [facility], and had been treated for acute exacerbation of COPD, he was treated with IM Depo-Medrol, prednisone taper starting on 03/09/2018. He was seen again in follow-up on 04/14/[address] Hastings in the office and patient was finishing his 6 week prednisone taper. Patient was having chest tightness and shortness of breath on exertion. Did any wheezing, denied any chest congestion or phlegm production, denied any fever or chills. EKG was done in the office and showed A. fib RVR with a rate of 190 BPM. He was sent to the emergency department for further evaluation and treatment. Chest x-ray showed no acute pulmonary process. Cardiology was consulted, patient's rate control was achieved by Cardizem drip initially, and apparently patient did not take his Rythmol at home. Currently patient has been transitioned to oral Cordarone, currently remains in atrial fibrillation, with a rate in the 60s to 70s, his breathing has improved, although patient still complains of significant exertional dyspnea. Denies any chest pain. Denies any chest tightness, no cough, no congestion, no wheezing, no fever or chills. Patient has been on chronic anticoagulation the form of Eliquis, currently at 5 mg twice daily. Echocardiogram revealed EF of 50-55%, patient's valves were not well visualized, no right-sided pressures were taken. Patient is not oxygen dependent at his baseline, currently on 2 L of oxygen per nasal cannula his pulse ox is 99%. Lung sounds are diminished, with minimal end expiratory wheezing on forced exhale maneuver over anterior upper lobe. No rhonchi, no rales. Afebrile. Hemodynamically stable. Initial lab work showed white blood cell count of 12.5, hemoglobin of 14.3, in which was in renal profile were unremarkable, proBNP was 567, troponins negative 3. TSH was 2.150. He has his CPAP machine from home which he has been utilizing every night. Maintenance inhalers include Advair 500/50, Combivent Respimat inhaler, nebulized albuterol and Atrovent, and Pro-Air rescue inhaler. Patient quit smoking 20 years ago, did smoke for 10 years 1-1/2 packs a day, quit smoking marijuana 10 years ago. Review of Systems All systems: negative Constitutional: Denies chills, Denies fever Eyes: denies blurred vision, denies pain Ears, nose, mouth and throat: Denies headache, Denies sore throat Cardiovascular: Reports chest pain, Reports decreased exercise tolerance, Reports dyspnea on exertion, Denies shortness of breath Respiratory: Reports dyspnea, Denies cough Gastrointestinal: Denies abdominal pain, Denies diarrhea, Denies nausea, Denies vomiting Musculoskeletal: Denies myalgias Integumentary: Denies pruritus, Denies rash Neurological: Denies numbness, Denies weakness Psychiatric: Denies anxiety, Denies depression Endocrine: Denies fatigue, Denies weight change Past Medical History Past Medical History: Atrial Fibrillation, COPD, Diabetes Mellitus, GERD/Reflux , Hyperlipidemia, Hypertension, Sleep Apnea/CPAP/BIPAP Additional Past Medical History / Comment(s): hx migraines, History of Any Multi-Drug Resistant Organisms: None Reported Past Surgical History: Heart Catheterization, Orthopedic Surgery, Tonsillectomy Additional Past Surgical History / Comment(s): left knee athroscopy, nasal surgery, cyst removed from left hand, hemorrhoidectomy, WYATT, cardioversion x 2, Past Anesthesia/Blood Transfusion Reactions: Motion Sickness Past Psychological History: No Psychological Hx Reported Smoking Status: Former smoker Past Alcohol Use History: None Reported Additional Past Alcohol Use History / Comment(s): quit smoking 25 yrs ago, smoked for 25 yrs, 1 PPD Past Drug Use History: Marijuana Additional Drug Use History / Comment(s): none in past 1 1/2 yrs. - Past Family History Father Family Medical History: Cancer Medications and Allergies Home Medications Medication Instructions Recorded Confirmed Type Omeprazole [PriLOSEC] 20 mg PO DAILY 01/10/14 04/14/18 History Simvastatin [Zocor] 10 mg PO HS 01/10/14 04/14/18 History Albuterol Sulfate [Proair Hfa] 2 puff INHALATION RT-Q6H PRN 10/11/15 04/14/18 History Apixaban [Eliquis] 5 mg PO BID 10/11/15 04/14/18 History Fluticasone/Salmeterol [Advair 1 puff INHALATION RT-BID 10/11/15 04/14/18 History 500-50 Diskus] Ipratropium/Albuterol Sulfate 1 puff INHALATION RT-QID 10/11/15 04/14/18 History [Combivent Respimat Inhaler] Lisinopril [Zestril] 2.5 mg PO DAILY 10/11/15 04/14/18 History Propafenone [Rythmol] 150 mg PO DAILY PRN 10/11/15 04/14/18 History metFORMIN HCL 1,000 mg PO BID 10/13/15 04/14/18 History Carvedilol [Coreg] 25 mg PO BID 04/14/18 04/14/18 History Cholecalciferol [Vitamin D3] 5,000 unit PO DAILY 04/14/18 04/14/18 History Indomethacin [Indocin] 25 mg PO TID 04/14/18 04/14/18 History Ipratropium-Albuterol Nebulize 3 ml INHALATION RT-QID 04/14/18 04/14/18 History [Duoneb 0.5 mg-3 mg/3 ml Soln] glipiZIDE [Glucotrol] 5 mg PO AC-BRKFST 04/14/18 04/14/18 History traMADol HCL [Ultram] 50 mg PO BID PRN 04/14/18 04/14/18 History Allergies Allergy/AdvReac Type Severity Reaction Status Date / Time Penicillins Allergy Severe Anaphylaxis Verified 04/14/18 16:42 aspirin AdvReac Nausea Verified 04/14/18 16:42 metoprolol succinate AdvReac increased Verified 04/14/18 16:42 [From Toprol XL] BP, palpitations EKG adhesive patch Allergy Rash/Hives Uncoded 10/11/15 11:15 Physical Exam Vitals: Vital Signs Temp Pulse Pulse Pulse Resp BP Pulse Ox 04/20/18 09:20 68 04/20/18 09:06 66 04/20/18 08:00 98.3 F 94 94 20 155/73 99 04/20/18 04:25 68 04/20/18 04:04 69 04/20/18 03:57 97.9 F 68 16 120/75 95 04/20/18 00:21 76 16 110/69 94 L 04/19/18 21:45 92 04/19/18 21:25 88 97 04/19/18 20:02 98.3 F 93 16 133/72 93 L 04/19/18 16:11 99 04/19/18 16:01 98 04/19/18 16:00 16 04/19/18 15:41 98.2 F 82 16 119/70 95 04/19/18 12:13 96 04/19/18 12:03 95 04/19/18 11:27 97.4 F L 97 20 140/95 95 Intake and Output 04/19/18 04/20/18 04/20/18 22:59 06:59 14:59 Intake Total 230 240 Output Total 450 Balance -220 240 Intake: Oral 230 240 Output: Urine 450 Other: Voiding Method Toilet Toilet Toilet # Voids 2 2 Weight 151.5 kg GENERAL EXAM: Alert, pleasant, obese 62-year-old white male comfortable in no apparent distress. HEAD: Normocephalic/atraumatic. EYES: Normal reaction of pupils, equal size. Conjunctiva pink, sclera white. NOSE: Clear with pink turbinates. THROAT: No erythema or exudates. NECK: No masses, no JVD, no thyroid enlargement, no adenopathy. CHEST: No chest wall deformity. Symmetrical expansion. LUNGS: Equal air entry diminished breath sounds bilaterally, minimal end expiratory wheeze over left upper lobe, no rhonchi, no rales CVS: Regular rate and rhythm, normal S1 and S2, no gallops, no murmurs, no rubs ABDOMEN: Soft, nontender. No hepatosplenomegaly, normal bowel sounds, no guarding or rigidity. EXTREMITIES: No clubbing, no edema, no cyanosis, 2+ pulses and upper and lower extremities. MUSCULOSKELETAL: Muscle strength and tone normal. SPINE: No scoliosis or deformity SKIN: No rashes CENTRAL NERVOUS SYSTEM: Alert and oriented -3. No focal deficits, tone is normal in all 4 extremities. PSYCHIATRIC: Alert and oriented -3. Appropriate affect. Intact judgment and insight. Results - Laboratory Findings CBC and BMP: 04/17/18 06:28 04/17/18 06:28 Abnormal lab findings: Abnormal Labs 04/14/18 04/14/18 04/14/18 16:21 16:21 20:21 WBC 12.0 H RBC RDW 15.6 H Neutrophils # 9.9 H BUN 22 H Glucose 155 H POC Glucose (mg/dL) 109 H Total Protein 6.2 L Triglycerides 04/15/18 04/15/18 04/15/18 05:27 05:44 11:27 WBC RBC RDW Neutrophils # BUN Glucose POC Glucose (mg/dL) 165 H 190 H Total Protein Triglycerides 182 H 04/15/18 04/15/18 04/16/18 16:48 20:56 06:30 WBC RBC RDW Neutrophils # BUN Glucose POC Glucose (mg/dL) 117 H 208 H 136 H Total Protein Triglycerides 04/16/18 04/16/18 04/16/18 06:33 06:33 11:29 WBC 12.5 H RBC RDW Neutrophils # 9.2 H BUN Glucose 118 H POC Glucose (mg/dL) 111 H Total Protein Triglycerides 04/16/18 04/16/18 04/17/18 16:31 21:11 06:24 WBC RBC RDW Neutrophils # BUN Glucose POC Glucose (mg/dL) 147 H 127 H 185 H Total Protein Triglycerides 04/17/18 04/17/18 04/17/18 06:28 06:28 16:50 WBC RBC 4.13 L RDW 16.4 H Neutrophils # BUN Glucose 105 H POC Glucose (mg/dL) 129 H Total Protein Triglycerides 04/17/18 04/18/18 04/18/18 20:55 05:53 11:39 WBC RBC RDW Neutrophils # BUN Glucose POC Glucose (mg/dL) 102 H 113 H 141 H Total Protein Triglycerides 04/18/18 04/18/18 04/19/18 17:34 20:28 21:11 WBC RBC RDW Neutrophils # BUN Glucose POC Glucose (mg/dL) 112 H 124 H 110 H Total Protein Triglycerides 04/20/18 06:17 WBC RBC RDW Neutrophils # BUN Glucose POC Glucose (mg/dL) 105 H Total Protein Triglycerides - Diagnostic Findings Chest x-ray: report reviewed, image reviewed Additional studies: Results of the EKG, echocardiogram reviewed Assessment and Plan Plan: Assessment: #1. Dyspnea, chest tightness, related to A. fib RVR on presentation, patient's heart rate was 190 BPM on presentation, currently better controlled, on amiodarone, initially treated with IV Cardizem. #2. Recent exacerbation of COPD and patient was treated on outpatient basis, improved, and his COPD currently stable #3. Proximal atrial fibrillation, on chronic anticoagulation in the form of Eliquis, and patient had not taken his Rythmol #4. Advanced COPD, with a baseline FEV1 of 30-34% of predicted, and diffusion capacity of 48% of predicted, oxygen dependent at baseline, this is consistent with stage III COPD #5. Obstructive sleep apnea, on CPAP therapy #6. Morbid obesity #7. Hypertension, hyperlipidemia #8. GERD/reflux #9. Diabetes mellitus #10. Former smoker, patient quit smoking 20 years ago, carries 10 years of one half packs a day, patient used to smoke marijuana, quit 10 years ago Plan: From pulmonary perspective patient is stable, no significant wheezing, cough or chest congestion, he had just finished a 6 week lung steroid taper, no need for additional prednisone. Continue with nebulized bronchodilators, still complaining of some exertional dyspnea, remains in atrial fibrillation with a controlled rate, he is anticoagulated on Eliquis, will ask cardiology if cardioversion is a possibility. We'll continue to follow and make further recommendations depending on the course. I performed a history & physical examination of the patient and discussed their management with my nurse practitioner, Trinh Llamas. I reviewed the nurse practitioner's note and agree with the documented findings and plan of care. Lung sounds are positive for diminished breath sounds. The findings and the impression was discussed with the patient. I attest to the documentation by the nurse practitioner. Time with Patient: Greater than 30
[2018-04-20 11:42] LABS: Glucose,Whole Blood 86 mg/dL (75-99)
[2018-04-20 14:44] VITALS: BMI 42.8
--- NOTE | 2018-04-20 15:28 | P.PN ---
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 Devi for his lung needs. According to the patient, he had been to see Dr. Hastings on a couple of occasions recently because of difficulty in breathing, it was felt that he may have a COPD exacerbation and he was treated with steroids. In spite of being on the steroids patient continued to be short of breath, and can feel his heart racing fast. He went back to see Dr. Hastings in the office and was found to be in A. fib with RVR. The patient was then directed to come to the emergency room. There was no chest x-ray performed on arrival here. EKG performed on arrival here showed atrial fibrillation with a rapid ventricular response, heart rate 190. Blood pressure 156/102 on arrival, oxygen saturation 96% on room air. White blood cell count 12.0, hemoglobin 14.4 , platelet count 297. Sodium 141, potassium 4.7, BUN 22 and creatinine 0.7. Magnesium 1.8. Troponins are negative 3. TSH level II.1. At the time of my examination, patient is quite tired, and quite short of breath. He does feel his heart racing fast. Apparently his heart rate has been up in the 150-160 range through most of the night. He is on a Cardizem drip at 10 mg per hour currently. Patient's home medications include Ultram, metformin, Glucotrol, Zocor, Rythmol when necessary, Prilosec, Zestril, inhalers, Indocin, Advair, vitamin D, Coreg, Eliquis, and pro-air. According to the patient, he did not realize that he was back in atrial fibrillation, he did not take Rythmol at home. He thinks the symptoms have been going on for 3 or 4 weeks. 04/16/2018 Patient continued to be in A. fib with RVR this morning in spite of being on amiodarone. Blood pressure in the 90 systolic range. We will add some IV Lanoxin to his medication regime 3 doses. Continue IV amiodarone for 24 hours. Echocardiogram with Doppler study showed an ejection fraction of 50-55%. 04/18/2018 Patient seen and examined this morning, heart rate today is under better control. In the 90s at the time of my examination, blood pressure 136/70, 95% on room air. Patient states he still feels like he has trouble breathing. Does not feel back to his normal yet. 04/20/2018 Patient seen and examined this morning, overall doing well, he still states he gets quite short of breath walking to the bathroom. Continues to be in atrial fibrillation although today's rate is under better control. Because of the continued shortness of breath, and the fact the patient continues to be in A. fib, pulmonary has requested a possible cardioversion, Dr. kai Velazquez did speak with the patient, this will be performed tomorrow. Objective - Vital Signs Vital signs: Vital Signs Temp 97.5 F L 04/20/18 11:37 Pulse 72 04/20/18 12:04 Resp 20 04/20/18 11:37 BP 134/91 04/20/18 11:37 Pulse Ox 95 04/20/18 11:37 Intake & Output 04/19/18 04/20/18 04/20/18 18:59 06:59 18:59 Intake Total 904 240 Output Total 2250 Balance -1346 240 Weight 151.5 kg 151.5 kg Intake: Oral 904 240 Output: Urine 2250 Other: Voiding Method Toilet Toilet Toilet # Voids 2 2 - Exam PHYSICAL EXAMINATION: GENERAL: 62-year-old gentleman in no acute distress at time of my examination HEENT: Head is atraumatic, normocephalic. Pupils equal, round. Sclera anicteric. Conjunctiva are clear. Mucous membranes of the mouth are moist. Neck is supple. There is no elevated jugular venous pressure. HEART EXAMINATION: Heart S1 and S2 irregularly irregular CHEST EXAMINATION: Lungs are clear with diminished air entry to bilateral bases. ABDOMEN: Soft, obese, nontender. Bowel sounds are heard. No organomegaly noted. EXTREMITIES: 2+ peripheral pulses with trace evidence of peripheral edema and no calf tenderness noted. NEUROLOGIC patient is awake, alert and oriented 3 . - Labs CBC & Chem 7: 04/17/18 06:28 04/17/18 06:28 Labs: Abnormal Lab Results - Last 24 Hours (Table) 04/19/18 04/20/18 Range/Units 21:11 06:17 POC Glucose (mg/dL) 110 H 105 H (75-99) mg/dL Assessment and Plan Plan: Assessment and plan #1 atrial fibrillation with rapid ventricular response, rate under better control #2 history of paroxysmal atrial fibrillation on Eliquis for anticoagulation #3 COPD with possible exacerbation #4 hypertension #5 hyperlipidemia #6 diabetes #7 prior smoking history #8 sleep apnea Plan Patient will undergo WYATT and cardioversion tomorrow. Further recommendations to follow. DNP note has been reviewed, I agree with a documented findings and plan of care. Patient was seen and examined.
[2018-04-20 16:51] LABS: Glucose,Whole Blood 126 mg/dL (75-99)
[2018-04-20] MEDS: predniSONE 5 MG TAB PO SCH (17:45)
--- NOTE | 2018-04-20 20:05 | PN ---
PROGRESS NOTE DATE OF SERVICE: 04/20/2018 PRESENTING COMPLAINT: Short of breath. INTERVAL HISTORY: Patient presented with atrial fibrillation with rapid ventricular rate, better controlled. The heart rate goes up with exertion. Pulmonary spoke to Cardiology today. They are planning for a cardioversion tomorrow. REVIEW OF SYSTEMS: Done for constitutional, cardiovascular, GI, pulmonary; relevant findings as above. CURRENT MEDICATIONS: Reviewed. They include p.o. amiodarone, nadolol, Eliquis. PHYSICAL EXAMINATION: VITAL SIGNS: Temperature 96.7, pulse 86, respiration 20, blood pressure 137/86, pulse ox 98% on room air. GENERAL APPEARANCE: Sitting up, awake. EYES: Pupils equal. Conjunctivae normal. NECK: JVD not raised. Mass not palpable. RESPIRATORY: Effort increased. LUNGS: Decreased breath sounds. CARDIOVASCULAR: Heart sounds irregular. No edema. ABDOMEN: Soft, nontender. Liver and spleen not palpable. PSYCHIATRY: Alert and oriented x3. Mood and affect normal. INVESTIGATIONS: Accu-Cheks are noted. ASSESSMENT: 1. Persistent atrial flutter/fibrillation with rapid ventricular rate, better controlled, though rate goes up with exertion. 2. Chronic obstructive pulmonary disease in an ex-smoker. 3. Diabetes mellitus, type 2, on oral hypoglycemic. 4. Gastroesophageal reflux disease. 5. Hyperlipidemia. 6. Essential hypertension. 7. Obstructive sleep apnea. Uses CPAP machine. 8. Morbid obesity with body mass index of 43.6. PLAN: Patient is to undergo possible WYATT followed by cardioversion tomorrow. Care was discussed with the patient. Other medications to continue. MMODL / IJN: [id number] /
[2018-04-20] MEDS: ATORVASTATIN 10 MG TAB PO SCH (20:08)
[2018-04-20] MEDS: SODIUM CHLORIDE 0.9% 1,000 ML IV SCH (20:12)
[2018-04-20 20:53] LABS: Glucose,Whole Blood 147 mg/dL (75-99)
[2018-04-21] MEDS: ALBUTEROL NEBULIZED 2.5 MG/3 ML INHALATION PRN (03:33)
[2018-04-21] MEDS: SODIUM CHLORIDE 0.9% 1,000 ML IV SCH (06:01)
[2018-04-21 06:13] LABS: Glucose,Whole Blood 125 mg/dL (75-99)
[2018-04-21] MEDS: BUDESONIDE 1 MG/2 ML NEBU INHALATION SCH ×2 (07:17→20:13)
[2018-04-21] MEDS: IPRATROPIUM-ALBUTEROL 3 ML NEB INHALATION SCH ×4 (07:17→20:13)
[2018-04-21] MEDS: NADOLOL 20 MG TAB PO SCH ×2 (07:37→19:50)
[2018-04-21] MEDS: AMIODARONE 200 MG TAB PO SCH ×2 (07:37→18:05)
[2018-04-21] MEDS: LISINOPRIL 2.5 MG TAB PO SCH (07:37)
[2018-04-21] MEDS ORDERED: LIDOCAINE 1% INJ 10MG/ML (20 ML MDV) ONE (10:05)
[2018-04-21] MEDS ORDERED: PROPOFOL 10 MG/ML 20 ML VIAL IV ONE (10:05)
[2018-04-21] MEDS ORDERED: IV FLUID CONTINUATION 1,000 ML IV ONE ×2 (10:24)
[2018-04-21] MEDS: BENZOCAINE SPRAY 1 CAN MUCOUS MEM ONE ×2 (10:31→10:33)
[2018-04-21] MEDS ORDERED: SODIUM CHLORIDE 0.9% 1,000 ML IV SCH (11:15)
[2018-04-21 11:39] LABS: Glucose,Whole Blood 97 mg/dL (75-99)
[2018-04-21] MEDS: APIXABAN 5 MG TAB PO SCH ×2 (13:27→19:51)
[2018-04-21] MEDS: predniSONE 5 MG TAB PO SCH (13:27)
[2018-04-21] MEDS: metFORMIN 500 MG TAB PO SCH ×2 (13:27→19:51)
[2018-04-21] MEDS: PANTOPRAZOLE 40 MG TABLET PO SCH (13:28)
[2018-04-21] MEDS: glipiZIDE 5 MG TAB PO SCH (13:29)
[2018-04-21 13:51] VITALS: RESP 20
--- NOTE | 2018-04-21 14:08 | P.PN ---
Subjective Progress Note Date: 04/21/18 Principal diagnosis: Dyspnea, chest tightness, related to A. fib RVR This is 62-year-old white male patient with past medical history of paroxysmal atrial fibrillation, advanced COPD, with baseline FEV1 of 30-34% of predicted, obstructive sleep apnea, on CPAP therapy, morbid obesity, hypertension, hyperlipidemia, GERD/reflux. Patient is on chronic anticoagulation for his paroxysmal atrial fibrillation, he is had 2 cardioversions in the past, last one was 2 years ago, patient follows with fire control system installer Dr. Wild from [facility]. He states he had remained in sinus rhythm since his last cardioversion. Lately has been experiencing increased shortness of breath, he went to see Dr. [facility] pulmonary [facility], and had been treated for acute exacerbation of COPD, he was treated with IM Depo-Medrol, prednisone taper starting on 03/09/2018. He was seen again in follow-up on 04/14/[address] Hastings in the office and patient was finishing his 6 week prednisone taper. Patient was having chest tightness and shortness of breath on exertion. Did any wheezing, denied any chest congestion or phlegm production, denied any fever or chills. EKG was done in the office and showed A. fib RVR with a rate of 190 BPM. He was sent to the emergency department for further evaluation and treatment. Chest x-ray showed no acute pulmonary process. Cardiology was consulted, patient's rate control was achieved by Cardizem drip initially, and apparently patient did not take his Rythmol at home. Currently patient has been transitioned to oral Cordarone, currently remains in atrial fibrillation, with a rate in the 60s to 70s, his breathing has improved, although patient still complains of significant exertional dyspnea. Denies any chest pain. Denies any chest tightness, no cough, no congestion, no wheezing, no fever or chills. Patient has been on chronic anticoagulation the form of Eliquis, currently at 5 mg twice daily. Echocardiogram revealed EF of 50-55%, patient's valves were not well visualized, no right-sided pressures were taken. Patient is not oxygen dependent at his baseline, currently on 2 L of oxygen per nasal cannula his pulse ox is 99%. Lung sounds are diminished, with minimal end expiratory wheezing on forced exhale maneuver over anterior upper lobe. No rhonchi, no rales. Afebrile. Hemodynamically stable. Initial lab work showed white blood cell count of 12.5, hemoglobin of 14.3, in which was in renal profile were unremarkable, proBNP was 567, troponins negative 3. TSH was 2.150. He has his CPAP machine from home which he has been utilizing every night. Maintenance inhalers include Advair 500/50, Combivent Respimat inhaler, nebulized albuterol and Atrovent, and Pro-Air rescue inhaler. Patient quit smoking 20 years ago, did smoke for 10 years 1-1/2 packs a day, quit smoking marijuana 10 years ago. On 04/21/2018 patient seen in follow-up on selective care unit, patient had undergone WYATT, and cardioversion, which was unsuccessful. Still having exertional dyspnea, lung sounds are clear, no wheezing, no rhonchi. Oral intake coagulation in the form of Eliquis, amiodarone. No chest pain, no distress, no cough or chest congestion. During the WYATT patient was also found to have valvular abnormality according to the patient, full report is not yet available. Objective - Vital Signs Vital signs: Vital Signs Temp 98.6 F 04/21/18 12:00 Pulse 80 04/21/18 12:01 Resp 20 04/21/18 12:00 BP 133/88 04/21/18 12:00 Pulse Ox 98 04/21/18 12:00 Intake & Output 04/20/18 04/21/18 04/21/18 18:59 06:59 18:59 Intake Total 960 300 Balance 960 300 Weight 151.5 kg 151 kg Intake: IV 300 Oral 960 0 Other: Voiding Method Toilet Toilet Toilet # Voids 3 2 - Exam GENERAL EXAM: Alert, pleasant, obese 62-year-old white male comfortable in no apparent distress. HEAD: Normocephalic/atraumatic. EYES: Normal reaction of pupils, equal size. Conjunctiva pink, sclera white. NOSE: Clear with pink turbinates. THROAT: No erythema or exudates. NECK: No masses, no JVD, no thyroid enlargement, no adenopathy. CHEST: No chest wall deformity. Symmetrical expansion. LUNGS: Equal air entry diminished breath sounds bilaterally, no rhonchi, no rales no wheezes CVS: Regular rate and rhythm, normal S1 and S2, no gallops, no murmurs, no rubs ABDOMEN: Soft, nontender. No hepatosplenomegaly, normal bowel sounds, no guarding or rigidity. EXTREMITIES: No clubbing, no edema, no cyanosis, 2+ pulses and upper and lower extremities. MUSCULOSKELETAL: Muscle strength and tone normal. SPINE: No scoliosis or deformity SKIN: No rashes CENTRAL NERVOUS SYSTEM: Alert and oriented -3. No focal deficits, tone is normal in all 4 extremities. PSYCHIATRIC: Alert and oriented -3. Appropriate affect. Intact judgment and insight. - Labs CBC & Chem 7: 04/17/18 06:28 04/17/18 06:28 Labs: Abnormal Lab Results - Last 24 Hours (Table) 04/20/18 04/20/18 04/21/18 Range/Units 16:44 20:52 06:12 POC Glucose (mg/dL) 126 H 147 H 125 H (75-99) mg/dL Assessment and Plan Plan: Assessment: #1. Dyspnea, chest tightness, related to A. fib RVR on presentation, patient's heart rate was 190 BPM on presentation, currently better controlled, on amiodarone, initially treated with IV Cardizem. Status post WYATT and cardioversion on 04/21/2018, was unsuccessful #2. Recent exacerbation of COPD and patient was treated on outpatient basis, improved, and his COPD currently stable #3. Proximal atrial fibrillation, on chronic anticoagulation in the form of Eliquis, and patient had not taken his Rythmol #4. Advanced COPD, with a baseline FEV1 of 30-34% of predicted, and diffusion capacity of 48% of predicted, oxygen dependent at baseline, this is consistent with stage III COPD #5. Obstructive sleep apnea, on CPAP therapy #6. Morbid obesity #7. Hypertension, hyperlipidemia #8. GERD/reflux #9. Diabetes mellitus #10. Former smoker, patient quit smoking 20 years ago, carries 10 years of one half packs a day, patient used to smoke marijuana, quit 10 years ago Plan: From pulmonary perspective patient is stable, he could be considered for discharge home today if he has been cleared by cardiology. Remains in A. fib, his cardioversion today was unsuccessful. He is on oral intake regulation in the form of Eliquis, his rate is better controlled, no complaints of chest pain , still has some exertional dyspnea, but no acute distress. No cough, no chest congestion, no wheezing. Follow-up with Dr. Hastings in the office. I performed a history & physical examination of the patient and discussed their management with my nurse practitioner, Trinh Llamas. I reviewed the nurse practitioner's note and agree with the documented findings and plan of care. Lung sounds are positive for diminished breath sounds. The findings and the impression was discussed with the patient. I attest to the documentation by the nurse practitioner. Time with Patient: Less than 30
[2018-04-21 16:05] LABS: Glucose,Whole Blood 77 mg/dL (75-99)
[2018-04-21] MEDS: ATORVASTATIN 10 MG TAB PO SCH (19:51)
[2018-04-21 19:56] VITALS: BP 111/70; TEMP 97
[2018-04-21 20:31] VITALS: PULSE 86
--- NOTE | 2018-04-23 08:48 | DS ---
DISCHARGE SUMMARY DATE OF ADMISSION: 04/14/2018 DATE OF DISCHARGE: 04/21/2018 FINAL DIAGNOSES: 1. Persistent atrial flutter, fibrillation, rapid ventricular rate. 2. Chronic obstructive pulmonary disease in an ex-smoker. 3. Diabetes mellitus type 2 on oral hypoglycemic. 4. Gastroesophageal reflux disease. 5. Hyperlipidemia. 6. Essential hypertension. 7. Obstructive sleep apnea, uses CPAP machine. 8. Morbid obesity, body mass index 43.6. HOSPITAL COURSE: This patient presented with shortness of breath, found to be in atrial flutter, fibrillation, rapid ventricular rate. Heart rate was better controlled somewhat by the time of discharge, though does get up to 120s on exertion. Cardioversion was attempted but unsuccessfully. The patient is advised to lose weight. The patient will follow up with Dr. Hastings as an outpatient. CONSULTATION: Dr. Yarelis Martins and associates from Cardiology; Dr. Arreola from Pulmonary. A 2-D echocardiogram shows EF of 50% to 55%. PHYSICAL EXAMINATION: On examination, temperature 97, pulse 84, respiration 20, blood pressure 111/70, pulse ox 95% on room air. LUNGS: Diminished breath sounds. HEART: Sounds irregular. DISCHARGE MEDICATIONS: 1. Prilosec 20 mg a day. 2. Zocor 10 mg q.h.s. 3. ProAir 2 puffs q.6 p.r.n. 4. Eliquis 5 mg b.i.d. 5. Advair 500/50 one puff b.i.d. 6. Combivent 1 puff q.i.d. 7. Zestril 2.5 p.o. daily. 8. Metformin 1000 mg b.i.d. 9. Vitamin D3, 5000 units p.o. daily. 10.DuoNeb q.i.d. 11.Glucotrol 5 mg with breakfast. 12.Ultram 50 mg p.o. b.i.d. p.r.n. 13.Tylenol 500 mg q.4 p.r.n. 14.Cordarone 200 mg as directed. 15.Corgard 20 mg b.i.d. DISCONTINUED MEDICATIONS: Include Coreg, indomethacin, Rythmol. Follow up with Dr. Lelia Rivas in 1 week; Dr. Hastings on 05/08/2018; Manuela Zavala in 1 week. Patient also advised to reduce weight. The patient is given time off work for next 1 week. MMODL / IJN: [id number] /
--- NOTE | 2018-05-06 08:05 | P.TEE ---
Indications for Procedure(s): Atrial fibrillation with RVR Date of Procedure: 04/21/18 Preoperative Diagnosis: A. fib with RVR Postoperative Diagnosis: The same Description of Procedure(s): INDICATION: Atrial fibrillation with a rapid ventricular response CONSENT:. Verbal consent was applied and the patient PROCEDURE: Patient was brought to the lab in a fasting state. He was given IV sedation by department of anesthesia. A lubricated Omni probe was introduced into the oropharynx and was advanced into the esophagus after throat was sprayed with Cetacaine. Multiple views were obtained both from the esophagus and stomach. Color, pulsed and continuous wave Doppler studies were performed. Saline contrast bubble injection was also performed. Patient tolerated procedure well. FINDINGS: The aortic valve is tricuspid. The mitral valve showed evidence of moderate mitral regurgitation. There is mild tricuspid regurgitation. The left atrial appendage is free of any clot. There is no shunt across the intra-atrial septum. Selective contrast probably injection did not show any crossing of the bubbles. Left ankle function appear to be preserved. IMPRESSION: #1. No clot in left atrial appendage #2. Moderately severe mitral regurgitation #3. No PFO #4. Left ventricular function appear to be preserved. #5. Left atrium appeared to be enlarged PLAN:. We will proceed with cardioversion.
--- NOTE | 2018-05-06 08:08 | P.PCN ---
Date of Procedure: 04/21/18 Preoperative Diagnosis: A. fib with RVR Postoperative Diagnosis: Unsuccessful attempts at cardioversion Procedure(s) Performed: Cardioversion proceeded with WYATT Description of Procedure: Patient was brought to the lab in a fasting state. Patient had a WYATT examination which did not reveal any clot in the left atrial appendage. Patient was given anesthesia by department of anesthesia. Single shocks of 200 followed by 300, followed by360 joules was applied. Patient did not convert to sinus rhythm. Tolerated the procedure well. Final impression: Unsuccessful attempt at cardioversion. Plan:: Continue medical therapy
== END 2018-04-21 20:45 | disposition home or self-care (01) | DRG 309 ==
LOC: EC 15:58 → 3SCARD 18:33
PROVIDERS: ADMIT Hospitalist; ATTEND Hospitalist
PROC: 5A2204Z Restoration of Cardiac Rhythm, Single (ICD-10-PCS; principal; 2018-04-14)
DX: I48.0 Paroxysmal atrial fibrillation (principal); J44.1 Chronic obstructive pulmonary disease with (acute) exacerbation; Z68.41 Body mass index [BMI] 40.0-44.9, adult; I48.92 Unspecified atrial flutter; E66.01 Morbid (severe) obesity due to excess calories; E11.9 Type 2 diabetes mellitus without complications; E78.5 Hyperlipidemia, unspecified; G47.33 Obstructive sleep apnea (adult) (pediatric); I10 Essential (primary) hypertension; K21.9 Gastro-esophageal reflux disease without esophagitis; G43.909 Migraine, unspecified, not intractable, without status migrainosus; Z79.01 Long term (current) use of anticoagulants; Z79.84 Long term (current) use of oral hypoglycemic drugs; Z79.899 Other long term (current) drug therapy; Z87.891 Personal history of nicotine dependence; Z99.81 Dependence on supplemental oxygen; Z88.6 Allergy status to analgesic agent; Z88.0 Allergy status to penicillin; Z88.8 Allergy status to other drugs, medicaments and biological substances
CPT/HCPCS: 36415; 71046; 80048; 80053; 80061; 83735; 83880; 84443; 84484; 85025; 87324; 93005; 93306; 93312; 93320; 93325; 94640; 94660; 94760; 96361; 96365; 96366; 96376; 99291

== ENCOUNTER → 2019-11-02 | Outpatient (CLI) | payer BC ==
[2019-11-02 11:27] LABS: HCT 42.3 % (39.0-53.0); HGB 12.6 gm/dL (13.0-17.5); Hypochromasia Marked; MCH 25.3 pg (25.0-35.0); MCHC 29.7 g/dL (31.0-37.0); MCV 85.1 fL (80.0-100.0); Mean Platelet Volume 7.2; Platelet Count 237 k/uL (150-450); RBC 4.97 m/uL (4.30-5.90); RDW 15.7 % (11.5-15.5); WBC 10.6 k/uL (3.8-10.6)
[2019-11-02 11:33] LABS: ALT 21 U/L (4-49); AST 22 U/L (17-59); African American GFR (CKD) >90 (>60 ml/min/1.73 sqM); Albumin 4.5 g/dL (3.5-5.0); Alkaline Phosphatase 129 U/L (38-126); Anion Gap 8 mmol/L; Blood Urea Nitrogen 13 mg/dL (9-20); Calcium 9.6 mg/dL (8.4-10.2); Carbon Dioxide 31 mmol/L (22-30); Chloride 101 mmol/L (98-107); Glucose 135 mg/dL (74-99); Non-African American GFR(CKD) >90 (>60 ml/min/1.73 sqM); Potassium 4.5 mmol/L (3.5-5.1); Sodium 140 mmol/L (137-145); Total Bilirubin 0.6 mg/dL (0.2-1.3); Total Protein 7.3 g/dL (6.3-8.2)
[2019-11-02 11:36] LABS: INR 1.1 (<1.2); Partial Thromboplastin Time 27.4 sec (22.0-30.0); Prothrombin Time 10.8 sec (9.0-12.0)
[2019-11-02 12:08] LABS: Appearance,Urine Clear (Clear); Bilirubin,Urine Negative (Negative); Blood,Urine Negative (Negative); Color,Urine Light Yellow; Glucose,Urine (UA) Negative (Negative); Ketones,Urine Negative (Negative); Leukocyte Esterase,Urine Negative (Negative); Nitrite,Urine Negative (Negative); Protein,Urine Negative (Negative); Urobilinogen,Urine <2.0 mg/dL (<2.0)
== END | disposition home or self-care (01) ==
LOC: LABPAT 09:41
PROVIDERS: ATTEND Orthopaedic Surgery
DX: Z01.818 Encounter for other preprocedural examination (principal); Z01.812 Encounter for preprocedural laboratory examination
CPT/HCPCS: 80053; 81003; 85027; 85610; 85730; 87070

== ENCOUNTER → 2019-11-02 | Outpatient (CLI) | payer BC | END | disposition home or self-care (01) | LOC: CPPFTMAIN 08:35 | PROVIDERS: ATTEND Internal Medicine Critical Care Medicine | DX: J44.9 Chronic obstructive pulmonary disease, unspecified (principal) | CPT/HCPCS: 94060; 94726; 94729 ==

== ENCOUNTER 2019-11-22 07:30 | Day surgery (SDC) | payer BC ==
[2019-11-17 15:54] VITALS: BMI 40.4
[~2019-11-22 07:30] MED LIST: ACETAMINOPHEN TAB 500 MG TAB PO ONE; CLINDAMYCIN 900 MG in DEXTROSE 5% IN WATER 50 ML IVPB ONE; DEXAMETHASONE SOD PHOSPHATE 10 MG/ML 1 ML VIAL IV ONE; GABAPENTIN 300 MG CAP PO ONE; HYDROmorphone 0.5 MG/0.5 ML SYRINGE IVP PRN; LIDOCAINE 1% (10MG/ML) FOR IV START INTRADERMA PRN; MELOXICAM 7.5 MG TAB PO ONE; MIDAZOLAM 2 MG/2 ML VIAL IV PRN; ONDANSETRON 4 MG/2 ML VIAL IVP ONE; ROPIVACAINE 246.25 MG, EPINEPHrine 0.5 MG, KETOROLAC 30 MG, cloNIDine HCL/PF 80 MCG, WA... MISCELLANE ONE; TRANEXAMIC ACID 1,000 MG in SODIUM CHLORIDE 0.9% 100 ML IVPB ONE
[2019-11-22] MEDS: LACTATED RINGERS 1,000 ML IV SCH ×2 (08:02→08:51)
[2019-11-22 08:04] LABS: Glucose,Whole Blood 146 mg/dL (75-99)
[2019-11-22] MEDS ORDERED: PROPOFOL 10 MG/ML 20 ML VIAL IV ONE (08:58)
[2019-11-22] MEDS ORDERED: MIDAZOLAM 2 MG/2 ML VIAL ONE (08:58)
[2019-11-22] MEDS ORDERED: KETAMINE 10 MG/ML 20 ML VIAL ONE (08:58)
[2019-11-22] MEDS ORDERED: HYDROmorphone 0.5 MG/0.5 ML SYRINGE IVP PRN ×2 (09:04)
[2019-11-22] MEDS ORDERED: ONDANSETRON 4 MG/2 ML VIAL IVP PRN (09:04)
[2019-11-22] MEDS ORDERED: diazePAM 5 MG TAB PO PRN (09:04)
[2019-11-22] MEDS ORDERED: bisacodyL 10 MG SUPP RECTAL PRN (09:04)
[2019-11-22] MEDS ORDERED: NALOXONE 0.4 MG/ML 1 ML VIAL IV PRN (09:04)
[2019-11-22] MEDS ORDERED: MAGNESIUM HYDROXIDE 2,400 MG/10 ML CUP PO PRN (09:04)
[2019-11-22] MEDS ORDERED: NA PHOS,M-B/NA PHOS,DI-BA 133 ML ENEMA RECTAL PRN (09:04)
[2019-11-22] MEDS ORDERED: hydrOXYzine pamoate 25 MG CAP PO PRN (09:04)
[2019-11-22] MEDS ORDERED: HYDROcodone/APAP 5-325MG 1 EACH TAB PO PRN (09:04)
[2019-11-22] MEDS ORDERED: CLINDAMYCIN 1,800 MG in SODIUM CHLORIDE 0.9% IRRIGATIO 3,000 ML IRRIGATION ONE (09:36)
[2019-11-22] MEDS ORDERED: ROPIVACAINE 0.2%-NS ON-Q PUMP 1,090 MG, EMPTY PAIN BALL 1 EACH MISCELLANE PRN (09:43)
--- NOTE | 2019-11-22 10:27 | P.OP ---
Date of Procedure: 11/22/19 Preoperative Diagnosis: Severe osteoarthritis right knee Postoperative Diagnosis: Severe osteoarthritis right knee Procedure(s) Performed: Right total knee arthroplasty utilizing [employer] patient specific guides Implants: Calloway and Nephew Cruciate Retaining Journey II CR Oxinium Femoral Component size 8, right Calloway [employer] Nephew Journey Nonporous Tibial Baseplate size 7, right Calloway [employer] Nephew Journey II CR, XLPE Articular Insert, 9 mm, size 7-8 Calloway [employer] Nephew Julienne II Resurfacing Patellar Component, Oval, 32 mm All components were cemented using Palacose R bone cement. The articulation is Oxinium on polyethylene. [employer] patient specific guides The articulation is Oxinium on polyethylene. Anesthesia: spinal Surgeon: Mateo Nazario Manager Chemical #1: Marian Echevarria Estimated Blood Loss (ml): 50 Pathology: other (Bone and cartilage) Condition: stable Disposition: PACU Indications for Procedure: After failure of conservative treatment we discussed the surgical and nonsurgical treatment options at length. Patient wishes to proceed with a total knee arthroplasty. Complications specific to this procedure were discussed at length, including but not limited to infection, bleeding, stiffness, and nerve injury. Covid-19 was also discussed at length with the patient, and they are aware of the current policies and procedures. The patient was given the option of delaying surgery, but they elect to proceed knowing these risks. Patient is aware of all these complications and informed consent was obtained Operative Findings: The operative findings are consistent with severe osteoarthritis of the right knee Description of Procedure: Patient was seen in the preoperative area consent was reviewed and operative site was marked with a skin marker. An adductor canal pain catheter was placed by anesthesia in the preoperative area. Patient was then brought to the operating room and given preoperative antibiotics intravenously. A spinal anesth etic was administered by the anesthesia department. A tourniquet was placed on the upper thigh and the lower extremity was prepped and draped in usual sterile fashion. A gram of transexamic acid was given. A universal timeout was then performed which confirmed the patient's name, surgical site, ALLERGIES, and consent. The lower extremity was then exsanguinated and tourniquet was inflated to 250 mmHg. A standard and anterior midline approach to the knee was performed. The skin and subcutaneous tissue was dissected down to the patellar tendon. A medial parapatellar arthrotomy was then performed. The knee was then extended, the patellar was everted, and the knee was again flexed. Anterior horns of both menisci were excised, and a release was performed to the posterior medial aspect of the knee. On gross visual inspection, there was complete loss of articular cartilage in the medial and patellofemoral joint spaces. There was also significant cartilage damage in the lateral compartment. There were multiple periarticular osteophytes. The patient specific guide was placed on the distal femur, and pinned in place. Using the patient specific guide, the distal femoral cut was performed. The cutting block was then removed and the cut was checked for flatness. The appropriate 5-in-1 cutting block was then pinned in place through the holes that were drilled through the patient specific guide. The anterior condyles were cut without notching. The posterior and chamfer cuts were performed while protecting the collateral ligaments. The cutting block was then removed. Attention was then directed to the tibia. The remaining ACL was removed with a Ronguer, and the tibia was then gently subluxed forward with a large bent knee retractor. Any remaining menisci was excised. The posterior lateral corner was cauterized in order to cauterize the lateral geniculate artery. The patient specific guide for the tibia was then placed and was held in place with pins. Pinholes were then placed for rotation of the tibial component as well. Proximal tibia was then cut and sized. Next trials were then placed with the appropriate-sized insert. The knee was able to fully extend and flex to 130 and was stable throughout all range of motion. The knee was then extended, patella everted. Patella was then measured, and then using an osteotomy guide, the patella was cut at the appropriate level. The patella was then measured and drilled and the patella trial was then placed. The knee was then taken through range of motion with the patella trial and the patella tracked normally. The knee was then extended patella trial was then removed and the patella was everted. Knee was then flexed and lug holes were drilled through the femoral trial and the femoral trial was then removed. The tibial was then exposed, and the tibial broach guide was then pinned in place after it was set for the appropriate rotation to allow for the most coverage without overhang. The tibia was then reamed and broached. The cut surfaces of bone were then irrigated with pulsatile lavage. The posterior structures were injected with the ropivacaine solution. The knee was also irrigated with Irrisept solution. The components were then opened, the cement was mixed, and the components were then cemented in place. The cement was allowed to harden with the knee in full extension. While the cement was hardening, the remaining soft tissues were then injected with a ropivacaine solution, which consisted of 246.25 mg of ropivacaine, 0.5 mg of epinephrine, 30 mg of Toradol, 80 g of clonidine, and 48.45 mL of sterile water, for a total of 100 mL of fluid injected. After the cemented hardened. The tourniquet was released, and hemostasis was obtained. A second gram of transexamic acid was given. The knee was again irrigated. The knee was again taken through range of motion and found to be stable throughout all range of motion of 0-130, and the patella tracked normally. The fascia was then closed with #2 strata fix suture. The subcutaneous tissue was closed with 3-0 Vicryl and 3-0 strata fix. Dermabond glue was used for the skin and placed with the knee in flexion. The patient was placed in a sterile silver dressing. Patient was then transferred to recovery room in stable condition. The educational assistant ANOOP Leiva was required due the complexity surgery and the need for a skilled certified surgical technologist. She assisted in positioning, draping, retraction, and closure of the wound.
[2019-11-22 11:02] VITALS: RESP 18
[2019-11-22] MEDS ORDERED: ALBUTEROL NEBULIZED 2.5 MG/3 ML INHALATION ONE (11:34)
--- NOTE | 2019-11-22 11:40 | XR ---
EXAMINATION TYPE: XR knee limited RT DATE OF EXAM: 11/22/2019 CLINICAL HISTORY: Postoperative evaluation Two views of the right knee are submitted. Identified are changes of total knee arthroplasty with femoral and tibial components appearing well seated. Postsurgical soft tissue changes are noted. Alignment is anatomic.
[2019-11-22] MEDS: SODIUM CHLORIDE 0.9% 1,000 ML IV SCH ×2 (11:44→15:02)
[2019-11-22] MEDS: INSULIN ASPART (NovoLOG) 100 UNIT/ML VIAL SQ SCH ×3 (13:55→21:17)
[2019-11-22] MEDS: HYDROcodone/APAP 5-325MG 1 EACH TAB PO PRN ×2 (14:58→21:17)
[2019-11-22] MEDS: CLINDAMYCIN 900 MG in DEXTROSE 5% IN WATER 50 ML IVPB SCH ×4 (15:01→21:16)
--- NOTE | 2019-11-22 15:18 | P.HPIM ---
History of Present Illness H&P Date: 11/22/19 Chief Complaint: Right knee surgery History of presenting complaint: This is a pleasant 64 year old patient of Dr. Lelia Rivas. Chronic stable medical conditions include COPD, diabetes, GERD, hypertension, hyperlipidemia. Underwent right total knee arthroplasty. Some pain is present. Did tolerate a liquid diet. No postprocedure nausea vomiting. at the bedside. No chest pain or shortness of breath. Review of systems: GEN.: None EYES: None HEENT: None NECK: None RESPIRATORY: None CARDIOVASCULAR: None GASTROINTESTINAL: None GENITOURINARY: None MUSCULOSKELETAL: Joint pains LYMPHATICS: None HEMATOLOGICAL: None PSYCHIATRY: None NEUROLOGICAL: None Past medical history to include: COPD, diabetes, GERD, hypertension, hyperlipidemia, atrial fibrillation arthritis sleep apnea uses CPAP Social history: Smoke a pack a day for 25 years stopped about 26 ago. . 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 No alcohol Physical examination: VITAL SIGNS: 98.5, 84, 18, 124/79, 92% on room air GENERAL: BMI 40.4, sitting on bed, awake. EYES: Pupils equal. Conjunctiva normal. HEENT: External appearance of nose and ears normal, oral cavity grossly normal. NECK: JVD not raised; masses not palpable. HEART: First and second heart sounds are normal; no edema. LUNGS: Respiratory rate normal; clear to auscultation. ABDOMEN: Soft, nontender, liver spleen not palpable, no masses palpable. PSYCH: Alert and oriented x3; mood and affect normal MUSCULAR skeletal: Dressing over the right knee, evidence of OA in the hands. NEUROLOGICAL: Cranial nerves grossly intact; no facial asymmetry, power and sensation grossly intact. LYMPHATICS: No lymph nodes palpable in the axilla and neck INVESTIGATIONS, reviewed in the clinical context: Lab work from 11/02/2019: White count 10.6 hemoglobin 12.6 platelets 237 potassium 4.5 creatinine 0.65 Assessment: -Right total knee arthroplasty -Persistent atrial fibrillation, chronically on eliquis -COPD in an ex-smoker -Diabetes mellitus type 2 on oral hypoglycemic -GERD -Hyperlipidemia -Essential hypertension -Primary osteoarthritis -Obstructive sleep apnea uses CPAP -Morbid obesity BMI 40.4 - Plan: Home medications and be resumed. Eliquis to be resumed when okay with orthopedics. Care was discussed with the patient and the . Questions answered. Thank you Dr. Heithoff Past Medical History Past Medical History: Atrial Fibrillation, COPD, Diabetes Mellitus, GERD/Reflux, Hyperlipidemia, Hypertension, Osteoarthritis (OA), Sleep Apnea/CPAP/BIPAP Additional Past Medical History / Comment(s): Hx Migraines, has not had any in long, long time. CPAP use. Chronic back pain. History of Any Multi-Drug Resistant Organisms: None Reported Past Surgical History: Heart Catheterization, Orthopedic Surgery, Tonsillectomy Additional Past Surgical History / Comment(s): Left knee athroscopy, nasal surgery, cyst removed from left hand, hemorrhoidectomy, [facility], cardioversion x 2, pain clinic procedure, Total knee repalcement 11/2019. Past Anesthesia/Blood Transfusion Reactions: No Reported Reaction Past Psychological History: No Psychological Hx Reported Smoking Status: Former smoker Past Alcohol Use History: None Reported Additional Past Alcohol Use History / Comment(s): Quit smoking 25 yrs ago, smoked for 25 yrs, 1 PPD. Past Drug Use History: None Reported Additional Drug Use History / Comment(s): none in past 1 1/2 yrs. - Past Family History Father Family Medical History: Cancer Sister(s) Family Medical History: Cancer Additional Family Medical History / Comment(s): Breast Cancer. Mother Family Medical History: CVA/TIA Medications and Allergies Home Medications Medication Instructions Recorded Confirmed Type Omeprazole [PriLOSEC] 20 mg PO QAM 01/10/14 11/22/19 History Simvastatin [Zocor] 10 mg PO DAILY 01/10/14 11/22/19 History Apixaban [Eliquis] 5 mg PO BID 10/11/15 11/22/19 History Fluticasone/Salmeterol [Advair 1 puff INHALATION BID 10/11/15 11/22/19 History 500-50 Diskus] metFORMIN HCL 1,000 mg PO BID 10/13/15 11/22/19 History Cholecalciferol [Vitamin D3] 5,000 unit PO DAILY 04/14/18 11/22/19 History Ipratropium-Albuterol Nebulize 3 ml INHALATION QID 04/14/18 11/22/19 History [Duoneb 0.5 mg-3 mg/3 ml Soln] glipiZIDE [Glucotrol] 5 mg PO BID 04/14/18 11/22/19 History traMADol HCL [Ultram] 50 mg PO TID PRN 04/14/18 11/22/19 History Acetaminophen Tab [Tylenol Tab] 1,000 mg PO TID PRN 11/17/19 11/22/19 History Digoxin 250 mcg PO DAILY 11/17/19 11/22/19 History Diltiazem Cd [Cardizem Cd] 300 mg PO DAILY 11/17/19 11/22/19 History Pioglitazone [Actos] 45 mg PO DAILY 11/17/19 11/22/19 History Allergies Allergy/AdvReac Type Severity Reaction Status Date / Time Penicillins Allergy Severe Anaphylaxis Verified 11/17/19 15:41 aspirin AdvReac Nausea Verified 11/17/19 15:41 metoprolol succinate AdvReac increased Verified 11/17/19 15:41 [From Toprol XL] BP, palpitations EKG adhesive patch Allergy Rash/Hives Uncoded 11/17/19 15:41 Physical Exam Vitals: Vital Signs Temp Pulse Pulse Resp BP Pulse Ox 11/22/19 14:49 98.5 F 84 18 124/79 92 L 11/22/19 14:00 84 124/79 92 L 11/22/19 13:45 79 119/76 92 L 11/22/19 13:30 85 121/73 93 L 11/22/19 13:15 92 118/76 94 L 11/22/19 13:00 78 133/75 93 L 11/22/19 12:45 92 144/83 93 L 11/22/19 12:30 71 121/75 91 L 11/22/19 12:15 81 123/83 91 L 11/22/19 12:00 98.5 F 83 121/76 92 L 11/22/19 11:31 73 18 133/66 93 L 11/22/19 11:15 68 18 118/63 95 11/22/19 11:01 75 18 128/62 97 11/22/19 10:53 98.6 F 86 12 132/65 96 11/22/19 08:35 93 20 136/68 97 11/22/19 07:54 98.8 F 104 H 20 174/93 97 Intake and Output 11/22/19 11/22/19 11/22/19 06:59 14:59 22:59 Intake Total 907 Output Total 50 Balance 857 Intake: IV 907 Output: Estimated Blood Loss 50 Other: Weight 142.882 kg Results Labs: Abnormal Lab Results - Last 24 Hours (Table) 11/22/19 Range/Units 08:02 POC Glucose (mg/dL) 146 H (75-99) mg/dL Thrombosis Risk Factor Assmnt - Choose All That Apply Any of the Below Risk Factors Present?: Yes Each Factor Represents 1 point: Abnormal pulmonary function (COPD), History of prior major surgery (<1month), Obesity (BMI >25) Other Risk Factors: Yes Each Risk Factor Represents 2 Points: Age 61-74 years, Arthroscopic surgery, Major surgery Other congenital or acquired thrombophilia - If yes, enter type in comment: Yes Each Risk Factor Represents 5 Points: Elective major lower extremity arthoplasty Thrombosis Risk Factor Assessment Total Risk Factor Score: 14 Thrombosis Risk Factor Assessment Level: High Risk
[2019-11-22] MEDS: IPRATROPIUM-ALBUTEROL 3 ML NEB INHALATION SCH ×2 (15:19→20:06)
[2019-11-22 17:30] LABS: Glucose,Whole Blood 224 mg/dL (75-99)
[2019-11-22] MEDS: SYMBICORT 160-4.5 MCG INHALER INHALATION SCH (20:06)
[2019-11-22 20:43] LABS: Glucose,Whole Blood 223 mg/dL (75-99)
[2019-11-22] MEDS ORDERED: SENNOSIDES-DOCUSATE SODIUM 1 EACH TAB PO SCH (21:00)
[2019-11-22] MEDS: glipiZIDE 5 MG TAB PO SCH (21:15)
[2019-11-22] MEDS: metFORMIN 500 MG TAB PO SCH (21:16)
[2019-11-23] MEDS: HYDROcodone/APAP 5-325MG 1 EACH TAB PO PRN (02:40)
[2019-11-23] MEDS: HYDROmorphone 0.5 MG/0.5 ML SYRINGE IVP PRN ×2 (04:22→07:15)
[2019-11-23] MEDS: LACTATED RINGERS 1,000 ML IV SCH (04:28)
[2019-11-23 06:31] LABS: Anisocytosis Slight; Basophils % (A) 0 %; Eosinophils % (A) 0 %; HGB 10.1 gm/dL (13.0-17.5); Hypochromasia Marked; Lymphocytes % (A) 11 %; MCH 25.8 pg (25.0-35.0); MCHC 30.5 g/dL (31.0-37.0); MCV 84.6 fL (80.0-100.0); Mean Platelet Volume 7.8; Monocytes # (A) 0.6 k/uL (0-1.0); Monocytes % (A) 6 %; Neutrophils # (A) 7.9 k/uL (1.3-7.7); Neutrophils % (A) 82 %; Platelet Count 195 k/uL (150-450); RBC 3.91 m/uL (4.30-5.90); RDW 16.3 % (11.5-15.5); WBC 9.6 k/uL (3.8-10.6)
[2019-11-23 06:58] LABS: Glucose,Whole Blood 174 mg/dL (75-99)
[2019-11-23] MEDS: INSULIN ASPART (NovoLOG) 100 UNIT/ML VIAL SQ SCH (07:15)
[2019-11-23] MEDS: glipiZIDE 5 MG TAB PO SCH (07:16)
[2019-11-23] MEDS: metFORMIN 500 MG TAB PO SCH (07:16)
[2019-11-23] MEDS ORDERED: PANTOPRAZOLE 40 MG TABLET PO SCH (07:30)
[2019-11-23] MEDS: IPRATROPIUM-ALBUTEROL 3 ML NEB INHALATION SCH ×2 (07:47→10:52)
[2019-11-23] MEDS: SYMBICORT 160-4.5 MCG INHALER INHALATION SCH (07:48)
[2019-11-23 08:08] VITALS: BP 119/77; TEMP 98.4
[2019-11-23] MEDS ORDERED: ATORVASTATIN 10 MG TAB PO SCH (09:00)
[2019-11-23] MEDS ORDERED: DILTIAZEM CD 300 MG CAP.ER.24H PO SCH (09:00)
[2019-11-23] MEDS ORDERED: DIGOXIN 250 MCG TAB PO SCH (09:00)
[2019-11-23] MEDS ORDERED: PIOGLITAZONE 45 MG TAB PO SCH (09:00)
[2019-11-23] MEDS ORDERED: HYDROcodone/APAP 7.5-325MG 1 EACH TAB PO PRN ×2 (09:34)
[2019-11-23 11:02] VITALS: PULSE 80
--- NOTE | 2019-11-23 15:40 | P.DS ---
Providers Expected date of discharge: 11/23/19 Attending physician: Mateo Nazario Consults: 11/22/19 09:04 Consult Physician Routine Consulting Provider: Ace Hussein Consult Reason/Comments: medical management Do you want consulting provider notified?: Yes Primary care physician: Lelia Rivas - Discharge Diagnosis(es) (1) Osteoarthritis of right knee Status: Acute (2) Status post total right knee replacement Status: Acute Hospital Course: This is a 64-year-old male with known history of degenerative arthritis of the right knee. The patient presents for evaluation. After discussion and consideration patient elects to proceed with total knee arthroplasty. The patient is seen preoperatively by Dr. Nazario and medically cleared for surgery by their primary care physician. Patient is admitted to [facility] on 11/22/2019 for total knee arthroplasty. The procedures performed without complication or sequelae. The patient is doing well postoperatively. Labs and vital signs are stable on day of discharge. On day of discharge patient's knee incision is healing well. There is minimal erythema. There is no drainage noted at this time. There is minimal soft tissue swelling to the knee. Patient has full foot and ankle motion without difficulty or pain. Calf is soft and nontender to palpation. Neurovascular status to the right lower extremity is intact. Patient is discharged home in good condition. Opioid start talking form is reviewed and signed. Please see med rec for accurate list of home medications. Plan - Discharge Summary Discharge Rx Participant: Yes New Discharge Prescriptions: New HYDROcodone/APAP 7.5-325MG [[place] 7.5-325] 1 - 2 tab PO Q6H PRN #32 tab PRN Reason: Pain Sennosides [Senokot] 2 tab PO DAILY PRN #60 tablet PRN Reason: Constipation hydrOXYzine pamoate [Vistaril] 25 mg PO Q6H PRN #30 capsule PRN Reason: Pain Continue Simvastatin [Zocor] 10 mg PO DAILY Omeprazole [PriLOSEC] 20 mg PO QAM Fluticasone/Salmeterol [Advair 500-50 Diskus] 1 puff INHALATION BID Apixaban [Eliquis] 5 mg PO BID metFORMIN HCL 1,000 mg PO BID traMADol HCL [Ultram] 50 mg PO TID PRN PRN Reason: Pain glipiZIDE [Glucotrol] 5 mg PO BID Cholecalciferol [Vitamin D3 (25 Mcg = 1000 Iu)] 5,000 unit PO DAILY Ipratropium-Albuterol Nebulize [Duoneb 0.5 mg-3 mg/3 ml Soln] 3 ml INHALATION QID Acetaminophen Tab [Tylenol] 1,000 mg PO TID PRN PRN Reason: Pain Pioglitazone [Actos] 45 mg PO DAILY Diltiazem Cd [Cardizem CD] 300 mg PO DAILY Digoxin 250 mcg PO DAILY Discharge Medication List Omeprazole [PriLOSEC] 20 mg PO QAM 01/10/14 [History] Simvastatin [Zocor] 10 mg PO DAILY 01/10/14 [History] Apixaban [Eliquis] 5 mg PO BID 10/11/15 [History] Fluticasone/Salmeterol [Advair 500-50 Diskus] 1 puff INHALATION BID 10/11/15 [History] metFORMIN HCL 1,000 mg PO BID 10/13/15 [History] Cholecalciferol [Vitamin D3 (25 Mcg = 1000 Iu)] 5,000 unit PO DAILY 04/14/18 [History] Ipratropium-Albuterol Nebulize [Duoneb 0.5 mg-3 mg/3 ml Soln] 3 ml INHALATION QID 04/14/18 [History] glipiZIDE [Glucotrol] 5 mg PO BID 04/14/18 [History] traMADol HCL [Ultram] 50 mg PO TID PRN 04/14/18 [History] Acetaminophen Tab [Tylenol] 1,000 mg PO TID PRN 11/17/19 [History] Digoxin 250 mcg PO DAILY 11/17/19 [History] Diltiazem Cd [Cardizem CD] 300 mg PO DAILY 11/17/19 [History] Pioglitazone [Actos] 45 mg PO DAILY 11/17/19 [History] HYDROcodone/APAP 7.5-325MG [[place] 7.5-325] 1 - 2 tab PO Q6H PRN #32 tab 11/23/19 [Rx] Sennosides [Senokot] 2 tab PO DAILY PRN #60 tablet 11/23/19 [Rx] hydrOXYzine pamoate [Vistaril] 25 mg PO Q6H PRN #30 capsule 11/23/19 [Rx] Follow up Appointment(s)/Referral(s): [facility] [NON-STAFF] - As Needed (Continuous Passive Motion knee machine) Lelia Rivas MD [Primary Care Provider] - 1 Week (office will call with appointment time) [facility], [NON-STAFF] - As Needed Mateo Nazario DO [Doctor of Osteopathic Medicine] - 12/06/19 2:50 pm Ambulatory/Diagnostic Orders: Continuous Passive Motion (CPM) Machine [DME.AMB1] Location: None Selected Patient Instructions/Handouts: Joint Replacement Surgery (DC) Activity/Diet/Wound Care/Special Instructions: Weightbearing as tolerated with walker. Resume Eliquis. CPM 5-6 horus daily as tolerated. Leave dressing intact for 10 days. May be removed by you or the home care nurse. May shower with dressing in place. Please wear compressoin stockings daily for 2 weeks to prevent blood clots. May remove at night. Please follow up with [facility] and call with any questions or concerns, . Discharge Disposition: HOME WITH HOME HEALTH SERVICES
[2019-11-23 16:05] LABS: Hemoglobin A1C 6.7 % (4.0-6.0)
--- NOTE | 2019-11-23 19:47 | P.PN ---
Progress Note - Text Progress Note Date: 11/23/19 Chief Complaint: Right knee surgery History of presenting complaint: This is a pleasant 64 year old patient of Dr. Lelia Rivas. Chronic stable medical conditions include COPD, diabetes, GERD, hypertension, hyperlipidemia. Underwent right total knee arthroplasty. Today-feeling better. No chest pain or short of breath. Pain control. Did tolerate her breakfast. Did work with therapy. Review of systems: Was done for constitutional, cardiovascular, GI, pulmonary. relevant finding as above Current medications reviewed in today's electronic records Physical examination: VITAL SIGNS: 98.4, 89, 16, 119/77, 96% room air GENERAL: Sitting up, comfortable. EYES: Pupils equal. Conjunctiva normal. NECK: JVD not raised; masses not palpable. HEART: First and second heart sounds are normal; no edema. LUNGS: Respiratory rate normal; clear to auscultation. ABDOMEN: Soft, nontender, liver spleen not palpable, no masses palpable. PSYCH: Alert and oriented x3; mood and affect normal MUSCULAR skeletal: Dressing over the right knee, evidence of OA in the hands. INVESTIGATIONS, reviewed in the clinical context: White count 9.6 and globin 10.1 Lab work from 11/02/2019: White count 10.6 hemoglobin 12.6 platelets 237 potassium 4.5 creatinine 0.65 Assessment: -Right total knee arthroplasty -Persistent atrial fibrillation, chronically on eliquis -COPD in an ex-smoker -Diabetes mellitus type 2 on oral hypoglycemic -GERD -Hyperlipidemia -Essential hypertension -Primary osteoarthritis -Obstructive sleep apnea uses CPAP -Morbid obesity BMI 40.4 -Acute postprocedure anemia, as expected from surgery - Plan: Continue current medication treatment plan. Discussed with patient. Follow-up with PCP. Thank you Dr. Nazario
[2019-11-23] MEDS ORDERED: APIXABAN 5 MG TAB PO SCH (21:00)
== END 2019-11-23 12:07 | disposition home health service (06) ==
LOC: OR 07:30 → 4SSUR 10:59 → OR 11-23 12:07
PROVIDERS: ATTEND Orthopaedic Surgery
DX: M17.11 Unilateral primary osteoarthritis, right knee (principal); I11.9 Hypertensive heart disease without heart failure; E78.5 Hyperlipidemia, unspecified; R00.2 Palpitations; I48.20 Chronic atrial fibrillation, unspecified; E11.9 Type 2 diabetes mellitus without complications; R00.0 Tachycardia, unspecified; I10 Essential (primary) hypertension; I42.9 Cardiomyopathy, unspecified; K21.9 Gastro-esophageal reflux disease without esophagitis; G47.33 Obstructive sleep apnea (adult) (pediatric); Z99.89 Dependence on other enabling machines and devices; Z87.891 Personal history of nicotine dependence; E66.9 Obesity, unspecified; Z68.41 Body mass index [BMI] 40.0-44.9, adult; H91.90 Unspecified hearing loss, unspecified ear; R26.81 Unsteadiness on feet; J44.9 Chronic obstructive pulmonary disease, unspecified; G89.29 Other chronic pain; M54.9 Dorsalgia, unspecified; Z96.652 Presence of left artificial knee joint; Z98.890 Other specified postprocedural states; Z97.3 Presence of spectacles and contact lenses; Z83.3 Family history of diabetes mellitus; Z82.49 Family history of ischemic heart disease and other diseases of the circulatory system; Z80.3 Family history of malignant neoplasm of breast; Z80.9 Family history of malignant neoplasm, unspecified; Z82.3 Family history of stroke; Z79.01 Long term (current) use of anticoagulants; Z79.84 Long term (current) use of oral hypoglycemic drugs; Z79.51 Long term (current) use of inhaled steroids; Z79.899 Other long term (current) drug therapy; Z88.0 Allergy status to penicillin; Z88.6 Allergy status to analgesic agent
CPT/HCPCS: 94640 ×4; 97116; 97110; 97161; 80162; 85025; 88300; 83036; 73560; 27447; C1713; C1776; J2250; J0171; J1100; J2405; J1885; J2795; J0735; J1170 ×2

== ENCOUNTER 2020-10-07 21:35 | Emergency (ER) | payer BC ==
[2020-10-07] MEDS ORDERED: SODIUM CHLORIDE 0.9% 1,000 ML IV STA (21:46)
[2020-10-07] MEDS ORDERED: diphenhydrAMINE 50 MG/ML 1 ML VIAL IVP STA (22:03)
[2020-10-07] MEDS ORDERED: ONDANSETRON 4 MG/2 ML VIAL IVP STA (22:03)
[2020-10-07] MEDS ORDERED: DIAZEPAM 5 MG/ML 2 ML INJ IVP STA (22:03)
--- NOTE | 2020-10-07 22:04 | ED ---
Dizziness HPI - General Chief Complaint: Neuro Symptoms/Deficit Stated Complaint: Dizziness, light-headed Time Seen by Provider: 10/07/20 21:38 Source: patient, EMS, RN notes reviewed, old records reviewed Mode of arrival: EMS Limitations: no limitations - History of Present Illness Initial Comments: This is a 65-year-old male to the ER for evaluation today. Patient presents today for lightheadedness dizziness and a flushed feeling. Some vertiginous symptoms. Patient feels like the room was spinning with persistent nausea and vomiting. No headaches. No chest pain no shortness of breath. Symptoms were sudden onset as he tried to get off his chair tonight. Patient has had a prior history of vertigo almost this feels more severe. No medication changes no other complaints MD Complaint: dizziness -: hour(s) Timing: gradual onset Description: "room spinning", lightheadedness History of Same: Yes History of Trauma: No Severity: moderate Improves With: remaining still Worsens With: movement, position Associated Symptoms: denies other symptoms - Related Data Home Medications Medication Instructions Recorded Confirmed Simvastatin [Zocor] 10 mg PO HS 01/10/14 10/07/20 Apixaban [Eliquis] 5 mg PO BID 10/11/15 10/07/20 metFORMIN HCL [Glucophage] 1,000 mg PO BID 10/13/15 10/07/20 Cholecalciferol [Vitamin D3 (25 5,000 unit PO DAILY 04/14/18 10/07/20 Mcg = 1000 Iu)] Ipratropium-Albuterol Nebulize 3 ml INHALATION RT-QID PRN 04/14/18 10/07/20 [Duoneb 0.5 mg-3 mg/3 ml Soln] traMADol HCL [Ultram] 100 mg PO BID PRN 04/14/18 10/07/20 Acetaminophen Tab [Tylenol] 1,000 mg PO Q8H PRN 11/17/19 10/07/20 Digoxin 250 mcg PO DAILY@1200 11/17/19 10/07/20 Diltiazem Cd [Cardizem CD] 300 mg PO DAILY 11/17/19 10/07/20 Pioglitazone [Actos] 45 mg PO DAILY 11/17/19 10/07/20 Albuterol Inhaler [Ventolin Hfa 2 puff INHALATION RT-Q4H PRN 10/07/20 10/07/20 Inhaler] Fluticasone/Salmeterol [Advair Hfa 2 puff INHALATION RT-BID 10/07/20 10/07/20 230-21 Mcg Inhaler] Omeprazole Magnesium [PriLOSEC OTC] 20 mg PO DAILY 10/07/20 10/07/20 glipiZIDE XL [Glucotrol Xl] 5 mg PO BID 10/07/20 10/07/20 Previous Rx's Medication Instructions Recorded Meclizine [Antivert] 25 mg PO TID #15 tab 10/07/20 Allergies Allergy/AdvReac Type Severity Reaction Status Date / Time Penicillins Allergy Severe Anaphylaxis Verified 10/07/20 21:50 aspirin AdvReac Nausea Verified 10/07/20 21:50 metoprolol succinate AdvReac increased Verified 10/07/20 21:50 [From Toprol XL] BP, palpitations EKG adhesive patch Allergy Rash/Hives Uncoded 10/07/20 21:50 Review of Systems ROS Statement: Those systems with pertinent positive or pertinent negative responses have been documented in the HPI. ROS Other: All systems not noted in ROS Statement are negative. Past Medical History Past Medical History: Atrial Fibrillation, COPD, Diabetes Mellitus, GERD/Reflux, Hyperlipidemia, Hypertension, Osteoarthritis (OA), Sleep Apnea/CPAP/BIPAP Additional Past Medical History / Comment(s): Hx Migraines, has not had any in long, long time. CPAP use. Chronic back pain. History of Any Multi-Drug Resistant Organisms: None Reported Past Surgical History: Heart Catheterization, Orthopedic Surgery, Tonsillectomy Additional Past Surgical History / Comment(s): Left knee athroscopy, nasal surgery, cyst removed from left hand, hemorrhoidectomy, [facility], cardioversion x 2, pain clinic procedure, Total knee repalcement 11/2019. Past Anesthesia/Blood Transfusion Reactions: No Reported Reaction Past Psychological History: No Psychological Hx Reported Smoking Status: Former smoker Past Alcohol Use History: None Reported Past Drug Use History: None Reported - Past Family History Father Family Medical History: Cancer Sister(s) Family Medical History: Cancer Additional Family Medical History / Comment(s): Breast Cancer. Mother Family Medical History: CVA/TIA General Exam Limitations: no limitations General appearance: alert, in no apparent distress Head exam: Present: atraumatic, normocephalic, normal inspection Eye exam: Present: normal appearance, PERRL, EOMI. Absent: scleral icterus, conjunctival injection, periorbital swelling ENT exam: Present: normal exam, mucous membranes moist Neck exam: Present: normal inspection. Absent: tenderness, meningismus, lymphadenopathy Respiratory exam: Present: normal lung sounds bilaterally. Absent: respiratory distress, wheezes, rales, rhonchi, stridor Cardiovascular Exam: Present: regular rate, normal rhythm, normal heart sounds. Absent: systolic murmur, diastolic murmur, rubs, gallop, clicks GI/Abdominal exam: Present: soft, normal bowel sounds. Absent: distended, tenderness, guarding, rebound, rigid Extremities exam: Present: normal inspection, full ROM, normal capillary refill. Absent: tenderness, pedal edema, joint swelling, calf tenderness Back exam: Present: normal inspection Neurological exam: Present: alert, oriented X3, CN II-XII intact Psychiatric exam: Present: normal affect, normal mood Skin exam: Present: warm, dry, intact, normal color. Absent: rash Course Vital Signs 10/07/20 10/07/20 10/07/20 21:41 21:48 22:20 Temperature 98.6 F Pulse Rate 74 76 77 Respiratory 16 18 18 Rate Blood Pressure 160/92 170/100 153/104 O2 Sat by Pulse 95 96 95 Oximetry 10/07/20 10/07/20 10/07/20 22:44 22:47 22:56 Temperature Pulse Rate 86 88 77 Respiratory 16 Rate Blood Pressure 164/85 O2 Sat by Pulse 98 Oximetry 10/08/20 00:25 Temperature 98.2 F Pulse Rate 95 Respiratory 20 Rate Blood Pressure 161/79 O2 Sat by Pulse 95 Oximetry - Reevaluation(s) Reevaluation #1: 10/08/20 00:04 Medical record is reviewed Reevaluation #2: 10/08/20 00:04 Symptoms improved here in the ER if not resolved, patient feels comfortable for discharge home Patient is able to ambulate without ataxia EKG Findings - EKG Comments: EKG Findings:: EKG shows A. fib 77 QRS 104 QTC 441 Medical Decision Making - Medical Decision Making 65 male to the ER for evaluation of persistent vertiginous symptoms of low resolved currently patient otherwise feels well now and can be discharged home - Lab Data Result diagrams: 10/07/20 21:53 10/07/20 21:53 Lab Results 10/07/20 10/07/20 10/07/20 Range/Units 21:53 21:53 21:53 WBC 12.5 H (3.8-10.6) k/uL RBC 4.86 (4.30-5.90) m/uL Hgb 12.5 L (13.0-17.5) gm/dL Hct 40.8 (39.0-53.0) % MCV 84.0 (80.0-100.0) fL MCH 25.7 (25.0-35.0) pg MCHC 30.6 L (31.0-37.0) g/dL RDW 16.9 H (11.5-15.5) % Plt Count 258 (150-450) k/uL MPV 7.1 Neutrophils % 68 % Lymphocytes % 24 % Monocytes % 5 % Eosinophils % 2 % Basophils % 1 % Neutrophils # 8.4 H (1.3-7.7) k/uL Lymphocytes # 2.9 (1.0-4.8) k/uL Monocytes # 0.6 (0-1.0) k/uL Eosinophils # 0.3 (0-0.7) k/uL Basophils # 0.1 (0-0.2) k/uL Hypochromasia Moderate Anisocytosis Slight PT 10.3 (9.0-12.0) sec INR 1.0 (<1.2) APTT 25.8 (22.0-30.0) sec Sodium (137-145) mmol/L Potassium (3.5-5.1) mmol/L Chloride (98-107) mmol/L Carbon Dioxide (22-30) mmol/L Anion Gap mmol/L BUN (9-20) mg/dL Creatinine (0.66-1.25) mg/dL Est GFR (CKD-EPI)AfAm (>60 ml/min/1.73 sqM) Est GFR (CKD-EPI)NonAf (>60 ml/min/1.73 sqM) Glucose (74-99) mg/dL Plasma Lactic Acid [place] (0.7-2.0) mmol/L Calcium (8.4-10.2) mg/dL Phosphorus (2.5-4.5) mg/dL Magnesium (1.6-2.3) mg/dL Total Bilirubin (0.2-1.3) mg/dL AST (17-59) U/L ALT (4-49) U/L Alkaline Phosphatase (38-126) U/L Creatine Kinase (55-170) U/L Troponin I (0.000-0.034) ng/mL NT-Pro-B Natriuret Pep pg/mL Total Protein (6.3-8.2) g/dL Albumin (3.5-5.0) g/dL Urine Color Yellow Urine Appearance Clear (Clear) Urine pH 7.0 (5.0-8.0) Ur Specific [place] 1.016 (1.001-1.035) Urine Protein Negative (Negative) Urine Glucose (UA) Negative (Negative) Urine Ketones Negative (Negative) Urine Blood Negative (Negative) Urine Nitrite Negative (Negative) Urine Bilirubin Negative (Negative) Urine Urobilinogen <2.0 (<2.0) mg/dL Ur Leukocyte Esterase Negative (Negative) 10/07/20 10/07/20 10/07/20 Range/Units 21:53 21:53 21:53 WBC (3.8-10.6) k/uL RBC (4.30-5.90) m/uL Hgb (13.0-17.5) gm/dL Hct (39.0-53.0) % MCV (80.0-100.0) fL MCH (25.0-35.0) pg MCHC (31.0-37.0) g/dL RDW (11.5-15.5) % Plt Count (150-450) k/uL MPV Neutrophils % % Lymphocytes % % Monocytes % % Eosinophils % % Basophils % % Neutrophils # (1.3-7.7) k/uL Lymphocytes # (1.0-4.8) k/uL Monocytes # (0-1.0) k/uL Eosinophils # (0-0.7) k/uL Basophils # (0-0.2) k/uL Hypochromasia Anisocytosis PT (9.0-12.0) sec INR (<1.2) APTT (22.0-30.0) sec Sodium 136 L (137-145) mmol/L Potassium 4.3 (3.5-5.1) mmol/L Chloride 103 (98-107) mmol/L Carbon Dioxide 24 (22-30) mmol/L Anion Gap 9 mmol/L BUN 15 (9-20) mg/dL Creatinine 0.60 L (0.66-1.25) mg/dL Est GFR (CKD-EPI)AfAm >90 (>60 ml/min/1.73 sqM) Est GFR (CKD-EPI)NonAf >90 (>60 ml/min/1.73 sqM) Glucose 134 H (74-99) mg/dL Plasma Lactic Acid [place] 1.3 (0.7-2.0) mmol/L Calcium 9.0 (8.4-10.2) mg/dL Phosphorus 4.0 (2.5-4.5) mg/dL Magnesium 1.9 (1.6-2.3) mg/dL Total Bilirubin 0.3 (0.2-1.3) mg/dL AST 33 (17-59) U/L ALT 30 (4-49) U/L Alkaline Phosphatase 113 (38-126) U/L Creatine Kinase 71 (55-170) U/L Troponin I <0.012 (0.000-0.034) ng/mL NT-Pro-B Natriuret Pep pg/mL Total Protein 6.6 (6.3-8.2) g/dL Albumin 4.1 (3.5-5.0) g/dL Urine Color Urine Appearance (Clear) Urine pH (5.0-8.0) Ur Specific [place] (1.001-1.035) Urine Protein (Negative) Urine Glucose (UA) (Negative) Urine Ketones (Negative) Urine Blood (Negative) Urine Nitrite (Negative) Urine Bilirubin (Negative) Urine Urobilinogen (<2.0) mg/dL Ur Leukocyte Esterase (Negative) 10/07/20 Range/Units 21:53 WBC (3.8-10.6) k/uL RBC (4.30-5.90) m/uL Hgb (13.0-17.5) gm/dL Hct (39.0-53.0) % MCV (80.0-100.0) fL MCH (25.0-35.0) pg MCHC (31.0-37.0) g/dL RDW (11.5-15.5) % Plt Count (150-450) k/uL MPV Neutrophils % % Lymphocytes % % Monocytes % % Eosinophils % % Basophils % % Neutrophils # (1.3-7.7) k/uL Lymphocytes # (1.0-4.8) k/uL Monocytes # (0-1.0) k/uL Eosinophils # (0-0.7) k/uL Basophils # (0-0.2) k/uL Hypochromasia Anisocytosis PT (9.0-12.0) sec INR (<1.2) APTT (22.0-30.0) sec Sodium (137-145) mmol/L Potassium (3.5-5.1) mmol/L Chloride (98-107) mmol/L Carbon Dioxide (22-30) mmol/L Anion Gap mmol/L BUN (9-20) mg/dL Creatinine (0.66-1.25) mg/dL Est GFR (CKD-EPI)AfAm (>60 ml/min/1.73 sqM) Est GFR (CKD-EPI)NonAf (>60 ml/min/1.73 sqM) Glucose (74-99) mg/dL Plasma Lactic Acid [place] (0.7-2.0) mmol/L Calcium (8.4-10.2) mg/dL Phosphorus (2.5-4.5) mg/dL Magnesium (1.6-2.3) mg/dL Total Bilirubin (0.2-1.3) mg/dL AST (17-59) U/L ALT (4-49) U/L Alkaline Phosphatase (38-126) U/L Creatine Kinase (55-170) U/L Troponin I (0.000-0.034) ng/mL NT-Pro-B Natriuret Pep 616 pg/mL Total Protein (6.3-8.2) g/dL Albumin (3.5-5.0) g/dL Urine Color Urine Appearance (Clear) Urine pH (5.0-8.0) Ur Specific [place] (1.001-1.035) Urine Protein (Negative) Urine Glucose (UA) (Negative) Urine Ketones (Negative) Urine Blood (Negative) Urine Nitrite (Negative) Urine Bilirubin (Negative) Urine Urobilinogen (<2.0) mg/dL Ur Leukocyte Esterase (Negative) - Radiology Data Radiology results: report reviewed (Chest x-ray and CT brain is negative for acute disease), image reviewed Disposition Clinical Impression: Vertigo Disposition: HOME SELF-CARE Condition: Good Prescriptions: Meclizine [Antivert] 25 mg PO TID #15 tab Is patient prescribed a controlled substance at d/c from ED?: No Referrals: Lelia Rivas MD [Primary Care Provider] - 1-2 days
[2020-10-07 22:33] LABS: Anisocytosis Slight; Basophils # (A) 0.1 k/uL (0-0.2); Basophils % (A) 1 %; Eosinophils # (A) 0.3 k/uL (0-0.7); Eosinophils % (A) 2 %; HCT 40.8 % (39.0-53.0); HGB 12.5 gm/dL (13.0-17.5); Hypochromasia Moderate; Lymphocytes # (A) 2.9 k/uL (1.0-4.8); Lymphocytes % (A) 24 %; MCH 25.7 pg (25.0-35.0); MCHC 30.6 g/dL (31.0-37.0); Mean Platelet Volume 7.1; Monocytes # (A) 0.6 k/uL (0-1.0); Monocytes % (A) 5 %; Neutrophils # (A) 8.4 k/uL (1.3-7.7); Neutrophils % (A) 68 %; Platelet Count 258 k/uL (150-450); RBC 4.86 m/uL (4.30-5.90); RDW 16.9 % (11.5-15.5); WBC 12.5 k/uL (3.8-10.6)
--- NOTE | 2020-10-07 22:37 | CT ---
EXAMINATION TYPE: CT brain wo con DATE OF EXAM: 10/07/2020 COMPARISON: None HISTORY: dizziness CT DLP: 1121.4 mGycm Automated exposure control for dose reduction was used. Exam performed with no contrast. Ventricles have normal size. There is no mass effect nor midline shift. There is no sign of intracran ial hemorrhage. Calvarium is intact. The skull base is intact. There is normal aeration of the mastoi d sinuses. There is mucosal thickening right maxillary sinus. There is minimal mucosal thickening lef t maxillary sinus. IMPRESSION: Negative CT scan of the brain. Mild maxillary sinusitis.
[2020-10-07] MEDS ORDERED: IPRATROPIUM-ALBUTEROL 3 ML NEB INHALATION STA (22:44)
[2020-10-07 22:50] LABS: ALT 30 U/L (4-49); AST 33 U/L (17-59); African American GFR (CKD) >90 (>60 ml/min/1.73 sqM); Albumin 4.1 g/dL (3.5-5.0); Alkaline Phosphatase 113 U/L (38-126); Anion Gap 9 mmol/L; Blood Urea Nitrogen 15 mg/dL (9-20); Carbon Dioxide 24 mmol/L (22-30); Chloride 103 mmol/L (98-107); Creatine Kinase 71 U/L (55-170); Glucose 134 mg/dL (74-99); Magnesium 1.9 mg/dL (1.6-2.3); Non-African American GFR(CKD) >90 (>60 ml/min/1.73 sqM); Potassium 4.3 mmol/L (3.5-5.1); Sodium 136 mmol/L (137-145); Total Bilirubin 0.3 mg/dL (0.2-1.3); Total Protein 6.6 g/dL (6.3-8.2)
[2020-10-07 22:51] LABS: Partial Thromboplastin Time 25.8 sec (22.0-30.0); Prothrombin Time 10.3 sec (9.0-12.0)
[2020-10-07 23:14] LABS: Appearance,Urine Clear (Clear); Bilirubin,Urine Negative (Negative); Blood,Urine Negative (Negative); Color,Urine Yellow; Glucose,Urine (UA) Negative (Negative); Ketones,Urine Negative (Negative); Leukocyte Esterase,Urine Negative (Negative); Nitrite,Urine Negative (Negative); Protein,Urine Negative (Negative); Specific Gravity,Urine 1.016 (1.001-1.035); Urobilinogen,Urine <2.0 mg/dL (<2.0)
--- NOTE | 2020-10-07 23:26 | XR ---
EXAMINATION TYPE: XR chest 2V DATE OF EXAM: 10/07/2020 COMPARISON: 01/26/2019 HISTORY: Weakness TECHNIQUE: 2 views FINDINGS: Heart and mediastinum are normal. Lungs are clear of infiltrate. There is no heart failure. There are no hilar masses. There are chest leads. Costophrenic angles are clear. Bony thorax appears intact. IMPRESSION: No active cardiopulmonary disease. No change.
[2020-10-07] MEDS ORDERED: ONDANSETRON 4 MG ODT STARTER PACK 2 TAB BTL PO STA (23:51)
[2020-10-07] MEDS ORDERED: MECLIZINE 12.5 MG TAB PO STA (23:56)
[2020-10-08 01:15] VITALS: BP 161/79; PULSE 95; RESP 20; TEMP 98.2
== END 2020-10-08 00:40 | disposition home or self-care (01) ==
LOC: EC 21:35
DX: R42 Dizziness and giddiness (principal); R23.2 Flushing; I10 Essential (primary) hypertension; J44.9 Chronic obstructive pulmonary disease, unspecified; E11.9 Type 2 diabetes mellitus without complications; E78.5 Hyperlipidemia, unspecified; I48.91 Unspecified atrial fibrillation; K21.9 Gastro-esophageal reflux disease without esophagitis; G47.30 Sleep apnea, unspecified; M19.90 Unspecified osteoarthritis, unspecified site; Z87.891 Personal history of nicotine dependence; Z79.01 Long term (current) use of anticoagulants; Z79.51 Long term (current) use of inhaled steroids; Z79.84 Long term (current) use of oral hypoglycemic drugs; Z79.899 Other long term (current) drug therapy; Z88.0 Allergy status to penicillin; Z88.6 Allergy status to analgesic agent
CPT/HCPCS: 36415; 94640; 93005; 83880; 80053; 82550; 83605; 83735; 84100; 84484; 85025; 85610; 85730; 81003; 71046; 70450; 99285; 96374; 96375 ×2; 96361; J1200; J3360; J2405